=== PATIENT | female | born 1965 | race Caucasian/White ===

== ENCOUNTER 2020-08-25 15:35 | Outpatient (REF) | payer MEDICAID, SELFPAY ==
--- NOTE | ~2020-08-25 | MM_ITS ---
EXAMINATION: MM SCREENING DIGITAL BREAST TOMOSYNTHESIS, BILATERAL CLINICAL INFORMATION: Screening. Asymptomatic. Right breast biopsy 2013 (fibroadenomatoid change and adenosis). The lifetime risk of breast cancer based on the Tyrer-Cuzick Model is 15%. COMPARISON: Mammography: 11/04/2018, 12/20/2016, 09/08/2015 TECHNIQUE: Digital breast tomosynthesis is performed in both the craniocaudal and mediolateral oblique views along with computer-aided detection (CAD). Synthesized 2D images are generated from the tomosynthesis. FINDINGS: The breasts are heterogeneously dense, which may obscure small masses (ACR BI-RADS breast composition Category c). Parenchymal pattern is similar to prior exams. No significant changes. There are no significant masses, abnormal calcifications, or other abnormalities. There is biopsy clip marker again noted on the right mid upper outer quadrant. There is a stable macrolobulated mass under 2 cm mid medial left breast. This has interval benign solitary coarse internal calcification suggesting degenerating fibroadenoma. MM/MM tomosynthesis screening BI IMPRESSION: No significant changes from prior exams. ASSESSMENT: BI-RADS 2: Benign RECOMMENDATION: Routine annual mammography screening. This patient's information was entered into a reminder system with a target due date for their next mammogram.
== END 2020-08-25 15:36 | disposition home or self-care (01) ==
LOC: HO.MAMMO 15:35
PROVIDERS: PCP Pediatrics; Visit Provider Pediatrics
DX: Z12.31 Encounter for screening mammogram for malignant neoplasm of breast (principal)
CPT/HCPCS: 77063; 77067

== ENCOUNTER 2020-12-15 14:40 | Outpatient (REF) | payer MEDICAID, SELFPAY ==
--- NOTE | ~2020-12-15 | XR_ITS ---
EXAMINATION: XR HAND, RIGHT XR HAND, LEFT CLINICAL INFORMATION: Pain everywhere COMPARISON: Left wrist radiographs 08/19/2018 TECHNIQUE: 3 views of each hand FINDINGS: Right hand: No fracture or dislocation. Alignment is anatomic. Joint spaces are maintained with small osteophytes throughout the interphalangeal joints noted. The soft tissues appear unremarkable. Left hand: No fracture or dislocation. Alignment is anatomic. Joint spaces are maintained. Small osteophytes throughout the interphalangeal joints. The soft tissues appear unremarkable. XR/XR hand LT 2V IMPRESSION: Mild degenerative changes of both hands.
--- NOTE | ~2020-12-15 | XR_ITS ---
EXAMINATION: XR HAND, RIGHT XR HAND, LEFT CLINICAL INFORMATION: Pain everywhere COMPARISON: Left wrist radiographs 08/19/2018 TECHNIQUE: 3 views of each hand FINDINGS: Right hand: No fracture or dislocation. Alignment is anatomic. Joint spaces are maintained with small osteophytes throughout the interphalangeal joints noted. The soft tissues appear unremarkable. Left hand: No fracture or dislocation. Alignment is anatomic. Joint spaces are maintained. Small osteophytes throughout the interphalangeal joints. The soft tissues appear unremarkable. XR/XR hand RT 2V IMPRESSION: Mild degenerative changes of both hands.
== END 2020-12-15 14:41 | disposition home or self-care (01) ==
LOC: HO.XRAY 14:40
PROVIDERS: PCP Pediatrics; Visit Provider Pediatrics
DX: M79.641 Pain in right hand (principal); M79.642 Pain in left hand
CPT/HCPCS: 73120

== ENCOUNTER 2021-11-04 19:10 | Emergency (ER) | payer MEDICAID, SELFPAY ==
--- NOTE | ~2021-11-04 | CT_ITS ---
EXAMINATION: NONCONTRAST HEAD CT NONCONTRAST CERVICAL SPINE CT INDICATION INFORMATION: Fall. Pain. COMPARISON: 08/20/2019 TECHNIQUE: Separate noncontrast CT examinations of the head and cervical spine were performed. Coronal and sagittal images were created for each examination at the technologist workstation. This CT examination was performed using dose optimization techniques as appropriate, variously including the following: *Automated exposure control *Adjustment of mA and/or kV according to patient size (this includes techniques or standardized protocols for targeted exams where dose is matched to indication/reason for exam; i.e. extremities or head) *Use of iterative reconstruction technique DLP: 846 mGy-cm FINDINGS: Head: There is no evidence of acute intracranial hemorrhage or territorial infarction. No abnormal mass effect or midline shift is seen. [place] to white matter differentiation is well preserved. No extra-axial fluid collections are identified. No hydrocephalus. No significant volume loss. There is no abnormal attenuation within the brain parenchyma. No acute osseous or soft tissue abnormality. The mastoid air cells and visualized portions of the paranasal sinuses are well aerated. Cervical spine: Straightening of the normal cervical lordosis. There is anatomic alignment of the vertebral bodies and posterior elements. The atlantoaxial and atlantooccipital articulations are intact. Vertebral body heights are maintained. There is multilevel intervertebral disc space narrowing with endplate osteophyte formation and facet arthropathy. No evidence of acute fracture. No prevertebral soft tissue swelling. Visualized portions of the lung apices are unremarkable. The thyroid gland is unremarkable. CT/CT cervical spine wo IV con IMPRESSION: 1. No acute intracranial finding. 2. No acute fracture or malalignment of the cervical spine. Mild degenerative change throughout.
[2021-11-04 20:50] VITALS: BP 126/75; PULSE 69; RESP 18; TEMP 36.6; O2SAT 99; BMI 25.7
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
[2021-11-05] MEDS: Acetaminophen 325 MG TABLET 650 MG PO (00:31)
[2021-11-05] MEDS: Ondansetron ODT 4 MG TAB.RAPDIS TRANSLINGU (00:31)
== END 2021-11-05 01:18 | disposition home or self-care (01) ==
PROVIDERS: Emergency Provider Emergency Medicine; PCP Pediatrics
DX: S06.0X0A Concussion without loss of consciousness, initial encounter (principal); V28.0XXA Motorcycle driver injured in noncollision transport accident in nontraffic accident, initial encounter; Y93.89 Activity, other specified; Y92.414 Local residential or business street as the place of occurrence of the external cause; Y99.9 Unspecified external cause status
CPT/HCPCS: 70450; 72125; 99283; 99284

== ENCOUNTER 2022-05-09 11:23 | Outpatient (REF) | payer MEDICAID, SELFPAY ==
--- NOTE | ~2022-05-09 | US_ITS ---
EXAMINATION: US ABDOMEN COMPLETE CLINICAL INFORMATION: Right upper quadrant pain. COMPARISON: CT abdomen and pelvis 04/21/2017. TECHNIQUE: Real-time imaging of the abdominal viscera. Today's examination is limited secondary to overlying bowel gas. FINDINGS: PANCREAS: Visualized portions of pancreas are normal in appearance. ABDOMINAL AORTA: The proximal, mid, and distal segments are normal in caliber. INFERIOR VENA CAVA: Visualized portions are normal. LIVER: The liver is normal in size. The liver contour is normal. Parenchymal echogenicity is normal. Simple appearing 2.2 cm cyst of the right hepatic lobe. There is no intrahepatic biliary duct dilatation seen. GALLBLADDER: Normal. The gallbladder is physiologically distended without evidence of stones, sludge, polyps, wall thickening or pericholecystic fluid. COMMON BILE DUCT: Normal in caliber measuring 0.4 cm in diameter. RIGHT KIDNEY: The kidney measures 10.1 cm in maximum dimension. Suspected parapelvic cysts. No gross hydronephrosis. No renal calculi. LEFT KIDNEY: The kidney measures 10.7 cm in maximum dimension. Suspected peripelvic cysts. No gross hydronephrosis. No renal calculi. SPLEEN: Normal. The spleen measures 9.2 cm in maximum dimension. FREE FLUID: None. US/US abdomen complete IMPRESSION: 1. Simple appearing 2.2 cm cyst of the right hepatic lobe. 2. Suspected parapelvic cysts of both kidneys. No gross hydronephrosis. Further evaluation can be obtained with CT urogram if clinically indicated.
== END 2022-05-09 11:24 | disposition home or self-care (01) ==
LOC: HO.HMGCX 11:23
PROVIDERS: PCP Pediatrics; Visit Provider Family Medicine
DX: R10.11 Right upper quadrant pain (principal)
CPT/HCPCS: 76700

== ENCOUNTER 2022-07-18 09:36 | Outpatient (REF) | payer MEDICAID, SELFPAY ==
--- NOTE | ~2022-07-18 | CT_ITS ---
EXAMINATION: CT ABDOMEN AND PELVIS WITHOUT AND WITH CONTRAST CLINICAL INFORMATION: Renal cyst COMPARISON: None available. TECHNIQUE: Noncontrast CT of the abdomen and pelvis is performed followed by split bolus contrast-enhanced images using 85 mL Omnipaque 350 contrast.? Postcontrast imaging is performed during the combined nephrogram and excretion phase. Sagittal and coronal reformatted images were obtained on the technologist's workstation for both the precontrast and postcontrast phases. This CT examination was performed using dose optimization techniques as appropriate, variously including the following: *Automated exposure control *Adjustment of mA and/or kV according to patient size (this includes techniques or standardized protocols for targeted exams where dose is matched to indication/reason for exam; i.e. extremities or head) *Use of iterative reconstruction technique DLP: 707 mGy-cm FINDINGS: LUNG BASES: The visualized lung bases are unremarkable. LIVER, GALLBLADDER, AND BILIARY TREE: The liver is normal in size, shape, and attenuation. There is a bilobed 1.4 cm left hepatic cyst no additional lesions seen. There is no intrahepatic ductal dilatation. The gallbladder is unremarkable with no evidence of radiopaque gallstones, gallbladder wall thickening, or obvious pericholecystic inflammatory changes. PANCREAS: Unremarkable. SPLEEN: Unremarkable. ADRENAL GLANDS: Unremarkable. KIDNEYS AND URETERS: On nonenhanced CT there is no radiopaque renal calculi. There is bilateral kidney fullness. Postcontrast there is bilateral peripelvic cysts with and bilateral opacified kidney pelvis. Unremarkable. There is symmetrical bilateral kidney nephrograms. No cortical cysts, enhancing mass or perinephric stranding. The left kidney measures 10.7 cm in length and right kidney measures 10.5 cm. Both ureters are well-opacified and appear unremarkable.. BLADDER: Unremarkable. GASTROINTESTINAL TRACT: There is scattered stool and gas seen throughout the colon without distention. The small bowel loops are normal caliber. Appendix is normal caliber. ABDOMINAL WALL: There is a small umbilical hernia containing fat. LYMPH NODES: Normal. VASCULAR: The abdominal aorta and bifurcation into common iliac arteries are normal. PELVIC VISCERA: The uterus is anteverted and appears unremarkable. There is no free fluid. No adnexal mass seen. OSSEUS STRUCTURES: No aggressive lytic or sclerotic process seen. CT/CT urogram IMPRESSION: No radiopaque renal calculi or hydronephrosis. Bilateral parapelvic renal cysts. Mild constipation.
[2022-07-18] MEDS: iohexoL 350 MG/ML 100 ML INFUS..BTL IV (11:15)
[2022-07-18 14:10] LABS: Creatinine POC 0.5 mg/dL (0.5-1.4); GFR POC 60
== END 2022-07-18 09:37 | disposition home or self-care (01) ==
LOC: HO.CT 09:36
PROVIDERS: PCP Pediatrics; Visit Provider Pediatrics
DX: N28.1 Cyst of kidney, acquired (principal); K76.89 Other specified diseases of liver
CPT/HCPCS: 74178; 82565; Q9967

== ENCOUNTER 2022-09-04 13:46 | Outpatient (AMB) | payer MEDICAID, SELFPAY ==
--- NOTE | 2022-09-04 14:05 | A.OFFVIS_ITS ---
Intake Intake Visit Reasons: BI renal cyst Intake Note: Patient patient presents for bilateral renal cyst Urology Medication: none Blood Thinner: none Allergies peanut [PEANUT] Allergy (Severe, Verified 09/04/22 15:04) THROAT CLOSES tree nut [TREE NUT] Allergy (Severe, Verified 09/04/22 15:04) THROAT CLOSES FRUIT, SKINS Allergy (Severe, Uncoded 09/04/22 15:04) THROAT CLOSES Medication List - Last Reconciled 09/04/22 by MATI Curtis cholecalciferol (vitamin D3) 50 mcg PO QAM dicyclomine 10 mg PO TID metformin ER 750 mg PO DAILY morphine ER 30 mg PO BID PRN pantoprazole 40 mg PO DAILY HPI HPI Comments History of Present Illness Details Neeru is a very pleasant 57 year old patient of Dr. Leon. She has a PMH of chronic pain, Diabetes Type II, GERD, and asthma. She presents to the office today as a new patient for bilateral parapelvic cysts of both kidneys. Patient reports she had been experiencing right sided upper abdominal pain under her breast area at which time an ultrasound was ordered for further assessment and evaluation. Abdominal ultrasound showing bilateral suspected parapelvic cysts with no gross hydronephrosis and or renal calculi. Ultrasound recommending CT urogram for further evaluation. In review of patients chart it appears CT urogram was performed. These results were reviewed with the patient today. There is bilateral kidney fullness. Post-contrast there is bilateral peripelvic cyst with and bilateral opacified kidney pelvis. Unremarkable. There is symmetrical bilateral kidney nephrograms. No cortical cysts, enhancing mass or perinephric stranding. Both ureters are well-opacified and appear unremarkable. When asked patient does report urinary frequency however patient relates urinary frequency to her uncontrolled diabetes. She states whenever her sugars are elevated she notes urinary frequency. She otherwise denies any urinary issues or concerns at this time. When asked she denies urinary urgency, incontinence, nocturia, hematuria, dysuria, foul smelling urine, changes to urinary stream, flank pain, fever, and or chills. She is happy with her current voiding parameters. In office urinalysis results reviewed with the patient today. She reports she is following up with her PCP regarding her constipation and her gullbladder fullness. She otherwise denies any issues or concerns. [facility] Medical History (Updated 09/04/22 @ 15:32 [facility] Asthma Chronic pain Diabetes mellitus Social History Patient Tobacco Use Status: Never used Tobacco Review of Systems Const Reports as per HPI Eyes Reports no additional complaints ENT Reports no additional complaints Card Reports no additional complaints Resp Reports as per HPI GI Reports as per HPI Reports as per HPI Neuro Reports no additional complaints Psych Reports no additional complaints Endo Reports as per HPI Physical Exam Const General: cooperative, healthy appearing, comfortable, no acute distress, well developed, alert and awake Orientation/consciousness: patient oriented x3 Limitations: no limitations HEENT Head: Yes normal to inspection, Yes normocephalic and Yes atraumatic Ears: hearing grossly normal bilaterally Eyes General: appearance normal, both eyes and all related structures Neck Neck: Yes normal visual inspection and Yes trachea midline Chest Chest palpation & inspection: normal inspection of the chest Resp Effort & Inspection: normal respiratory effort and able to speak in complete sentences Cardio Rate: regular rate GI Inspection: Yes normal to inspection General: Yes no CVA tenderness Back/Spine/Pelvis Back: no CVA tenderness Skin General skin exam: no rashes or lesions noted Neuro General: patient oriented x3 Extrem General: Yes normal to inspection Psych Appearance: grossly normal and well kempt Mental Status: mental status grossly normal Speech and movement: Normal speech and movement present and Clear speech present Affect: normal affect Attitude: cooperative Thought process: Normal thought process present Thought content: Normal thought content present Insight: Fair insight present (Psych) Judgement: Fair judgement present (Psych) Results AMB Urinalysis, Automated UA Leukoctes 70 Luisa/uL Last Edit by Christin Villalba on 09/04/22 14:51 UA Nitrite Negative Last Edit by Christin Villalba on 09/04/22 14:51 UA Urobilinogen 0.2 mg/dL Last Edit by Christin Villalba on 09/04/22 14:51 UA Protein 0 mg/dL Last Edit by Christin Villalba on 09/04/22 14:51 UA pH 5.5 Last Edit by Christin Villalba on 09/04/22 14:51 UA Blood 0 Francesco/uL Last Edit by Christin Villalba on 09/04/22 14:51 UA Specific [place] 1.025 Last Edit by Christin Villalba on 09/04/22 14:51 UA Ketone Last Edit by Christin Villalba on 09/04/22 14:51 UA Bilirubin 1 mg/dL Last Edit by Christin Villalba on 09/04/22 14:51 UA Glucose 0 mg/dL Last Edit by Christin Villalba on 09/04/22 14:51 Results Reviewed Results Reviewed: Laboratory Last Values Urine pH (Auto) 5.5 09/04/22 14:47 Specific [place] (Auto) 1.025 09/04/22 14:47 Urine Protein (Auto) 0 mg/dL 09/04/22 14:47 Glucose (UA)(Auto) 0 mg/dL 09/04/22 14:47 Urine Blood (Auto) 0 Francesco/uL 09/04/22 14:47 Urine Nitrite (Auto) Negative 09/04/22 14:47 Urine Bilirubin (Auto) 1 mg/dL 09/04/22 14:47 Urine Urobilinogen (Auto) 0.2 mg/dL 09/04/22 14:47 Leukocyte Esterase (Auto) 70 Luisa/uL 09/04/22 14:47 Date of Service: 05/09/22 EXAMINATION: US ABDOMEN COMPLETE FINDINGS: PANCREAS: Visualized portions of pancreas are normal in appearance. ABDOMINAL AORTA: The proximal, mid, and distal segments are normal in caliber. INFERIOR VENA CAVA: Visualized portions are normal. LIVER: The liver is normal in size. The liver contour is normal. Parenchymal echogenicity is normal. Simple appearing 2.2 cm cyst of the right hepatic lobe. There is no intrahepatic biliary duct dilatation seen. GALLBLADDER: Normal. The gallbladder is physiologically distended without evidence of stones, sludge, polyps, wall thickening or pericholecystic fluid. COMMON BILE DUCT: Normal in caliber measuring 0.4 cm in diameter. RIGHT KIDNEY: The kidney measures 10.1 cm in maximum dimension. Suspected parapelvic cysts. No gross hydronephrosis. No renal calculi. LEFT KIDNEY: The kidney measures 10.7 cm in maximum dimension. Suspected peripelvic cysts. No gross hydronephrosis. No renal calculi. SPLEEN: Normal. The spleen measures 9.2 cm in maximum dimension. FREE FLUID: None. IMPRESSION: 1.? Simple appearing 2.2 cm cyst of the right hepatic lobe. 2.? Suspected parapelvic cysts of both kidneys. No gross hydronephrosis. Further evaluation can be obtained with CT urogram if clinically indicated. Date of Service: 07/18/22 EXAMINATION: CT ABDOMEN AND PELVIS WITHOUT AND WITH CONTRAST?? ? FINDINGS: LUNG BASES: The visualized lung bases are unremarkable.? LIVER, GALLBLADDER, AND BILIARY TREE: The liver is normal in size, shape, and attenuation. There is a bilobed 1.4 cm left hepatic cyst no additional lesions seen. There is no intrahepatic ductal dilatation. The gallbladder is unremarkable with no evidence of radiopaque gallstones, gallbladder wall thickening, or obvious pericholecystic inflammatory changes.? PANCREAS: Unremarkable.? SPLEEN: Unremarkable.? ADRENAL GLANDS: Unremarkable.? KIDNEYS AND URETERS: On nonenhanced CT there is no radiopaque renal calculi. There is bilateral kidney fullness. Postcontrast there is bilateral peripelvic cysts with and bilateral opacified kidney pelvis. Unremarkable. There is symmetrical bilateral kidney nephrograms. No cortical cysts, enhancing mass or perinephric stranding. The left kidney measures 10.7 cm in length and right kidney measures 10.5 cm. Both ureters are well-opacified and appear unremarkable..? BLADDER: Unremarkable.? GASTROINTESTINAL TRACT: There is scattered stool and gas seen throughout the colon without distention. The small bowel loops are normal caliber. Appendix is normal caliber.? ABDOMINAL WALL: There is a small umbilical hernia containing fat.? LYMPH NODES: Normal. VASCULAR: The abdominal aorta and bifurcation into common iliac arteries are normal. PELVIC VISCERA: The uterus is anteverted and appears unremarkable. There is no free fluid. No adnexal mass seen.? OSSEUS STRUCTURES: No aggressive lytic or sclerotic process seen.? IMPRESSION: No radiopaque renal calculi or hydronephrosis. Bilateral parapelvic renal cysts. ? Mild constipation. ? Assessment & Plan Assessment & Plan (1) Parapelvic renal cyst: Code(s): N28.1 - Cyst of kidney, acquired Plan In office urinalysis results reviewed with the patient; as noted above Abdominal U/S and CT Urogram results reviewed with the patient today. Discussed at length potential causes for parapelvic renal cysts. Patient denies any bothersome urinary issues or concerns. Renal ultrasound in 6 months Follow up in 6 months with imaging to be completed prior; or sooner with any issues, concerns, or questions. Orders: Orders US renal BI 6 Months N28.1 - Cyst of kidney, acquired AMB Urinalysis Automated 09/04/22 Z13.9 - Encounter for screening, unspecified Patient Instructions: The patient had an opportunity to ask questions regarding the treatment plan. All questions were answered. Physical exam, labs, and imaging were discussed and reviewed in detail. As well as risks, benefits, and discussion of treatment choices. No major barriers to understanding were identified. The patient expressed understanding and agreement with the above treatment plan. The patient was made aware they should contact our office by phone for worsening of their current condition, the appearance of new symptoms, or with any questions or concerns. Compliance is encouraged with any medications and follow up testing that is ordered. It is a privilege to be allowed the opportunity to participate in? your urological care.? Again, if you have any questions or concerns If you have any questions or concerns please do not hesitate to contact me. The office is [phone]. This note is constructed using voice recognition software. While every effort has been made to ensure accuracy straw hat brim raiser operator errors may have been included. Yours sincerely, MATI Curtis Coding Level of Care Code New Pt Level 3 (39216) Diagnoses Parapelvic renal cyst N28.1
== END 2022-09-04 14:58 | disposition home or self-care (01) ==
PROVIDERS: PCP Pediatrics; Visit Provider Nurse Practitioner Family
DX: N28.1 Cyst of kidney, acquired (principal)
CPT/HCPCS: 99203

== ENCOUNTER → 2022-09-04 13:46 | Outpatient (BNVA) | payer MEDICAID, SELFPAY | PROVIDERS: PCP Pediatrics; Visit Provider Nurse Practitioner Family | DX: N28.1 Cyst of kidney, acquired (principal) | CPT/HCPCS: 99203 ==

== ENCOUNTER 2023-02-20 09:53 | Outpatient (REF) | payer MEDICAID, SELFPAY ==
--- NOTE | ~2023-02-20 | US_ITS ---
EXAMINATION: US RETROPERITONEAL LIMITED (RENAL ONLY) CLINICAL INFORMATION: Cyst of kidney, acquired. COMPARISON: CT urogram 07/18/2022. Ultrasound abdomen complete 05/09/2022. TECHNIQUE: Real-time imaging of the kidneys. Limited visualization due to bowel gas. FINDINGS: RIGHT KIDNEY: 10.6 x 4.4 x 4.3 cm (SAG x AP x TRV). Multiple peripelvic anechoic spaces may represent peripelvic cysts versus pelvocaliectasis. No renal calculi. Renal cortical thickness is normal. Limited visualization. LEFT KIDNEY: 11.3 x 5.8 x 5.9 cm (SAG x AP x TRV). Multiple peripelvic anechoic spaces, largest mid pole 1.5 x 3.1 x 1.6 cm, may represent peripelvic cysts versus pelvocaliectasis. No renal calculi. Renal cortical thickness is normal. Limited visualization. US/US renal BI IMPRESSION: Multiple bilateral renal peripelvic anechoic spaces may represent peripelvic cysts versus pelvocaliectasis. CT scan of July 18, 2022 demonstrated bilateral parapelvic cysts.
== END 2023-02-20 09:54 | disposition home or self-care (01) ==
LOC: HO.HMGCX 09:53
PROVIDERS: PCP Pediatrics; Visit Provider Nurse Practitioner Family
DX: N28.1 Cyst of kidney, acquired (principal)
CPT/HCPCS: 76775

== ENCOUNTER 2023-03-12 14:44 | Outpatient (AMB) | payer MEDICAID, SELFPAY ==
--- NOTE | 2023-03-12 14:57 | MHC.OFFVIS ---
Intake Intake Visit Reasons: 6m/US Intake Note: Patient patient presents for bilateral renal cyst and ultrasound results (imaging 02/20/23) Urology Medication: none Blood Thinner: none Millwright Instructor Required: No Accompanied by: Self / Same As Patient Allergies peanut [PEANUT] Allergy (Severe, Verified 03/12/23 15:09) THROAT CLOSES tree nut [TREE NUT] Allergy (Severe, Verified 03/12/23 15:09) THROAT CLOSES FRUIT, SKINS Allergy (Severe, Uncoded 03/12/23 15:09) THROAT CLOSES Medication List - Last Reconciled 03/12/23 by MATI Curtis cholecalciferol (vitamin D3) 50 mcg PO QAM dicyclomine 10 mg PO TID metformin ER 750 mg PO DAILY morphine ER 30 mg PO BID PRN pantoprazole 40 mg PO DAILY HPI HPI Comments History of Present Illness Details Neeru is a very pleasant 57 year old patient of Dr. Leon. She has a PMH of chronic pain, Diabetes Type II, GERD, and asthma. She presents to the office today for follow-up of her bilateral parapelvic cysts of both kidneys. In discussion with the patient today she reports to be doing and feeling well. She reports having had lower GI symptoms approximately a week ago when starting antibiotic therapy for an infected tooth however has since been feeling better. Recent renal imaging results reviewed with the patient today. Bilateral kidneys with multiple bilateral renal parapelvic and anechoic spaces may present peripelvic cysts. CT scan 07/11--demonstrates bilateral parapelvic cysts. When asked she currently denies any bothersome urinary issues or concerns. In office urinalysis results reviewed with the patient today. She denies denies urinary urgency, urinary frequency, incontinence, nocturia, hematuria, dysuria, foul smelling urine, changes to urinary stream, flank pain, fever, and or chills. She is happy with her current voiding parameters. [facility] Medical History Diabetes mellitus Chronic pain Asthma Social History Patient Tobacco Use Status: Never used Tobacco Review of Systems Const Reports as per HPI Eyes Reports no additional complaints ENT Reports no additional complaints Card Reports no additional complaints Resp Reports as per HPI GI Reports as per HPI Reports as per HPI Neuro Reports no additional complaints Psych Reports no additional complaints Endo Reports as per HPI Physical Exam Const General: cooperative, healthy appearing, comfortable, no acute distress, well developed, alert and awake Orientation/consciousness: patient oriented x3 Limitations: no limitations HEENT Head: Yes normal to inspection, Yes normocephalic and Yes atraumatic Ears: hearing grossly normal bilaterally Eyes General: appearance normal, both eyes and all related structures Neck Neck: Yes normal visual inspection and Yes trachea midline Chest Chest palpation & inspection: normal inspection of the chest Resp Effort & Inspection: normal respiratory effort and able to speak in complete sentences Cardio Rate: regular rate GI Inspection: Yes normal to inspection General: Yes no CVA tenderness Back/Spine/Pelvis Back: no CVA tenderness Skin General skin exam: no rashes or lesions noted Neuro General: patient oriented x3 Extrem General: Yes normal to inspection Psych Appearance: grossly normal and well kempt Mental Status: mental status grossly normal Speech and movement: Normal speech and movement present and Clear speech present Affect: normal affect Attitude: cooperative Thought process: Normal thought process present Thought content: Normal thought content present Insight: Fair insight present (Psych) Judgement: Fair judgement present (Psych) Results AMB Urinalysis, Automated UA Leukoctes 0 Luisa/uL Last Edit by Blackwood Seven on 03/12/23 15:12 UA Nitrite Negative Last Edit by Blackwood Seven on 03/12/23 15:12 UA Urobilinogen 0.2 mg/dL Last Edit by Blackwood Seven on 03/12/23 15:12 UA Protein 0 mg/dL Last Edit by Blackwood Seven on 03/12/23 15:12 UA pH 5.5 Last Edit by Blackwood Seven on 03/12/23 15:12 UA Blood 0 Francesco/uL Last Edit by Blackwood Seven on 03/12/23 15:12 UA Specific Lud[place] 1.025 Last Edit by Blackwood Seven on 03/12/23 15:12 UA Ketone Negative Last Edit by Blackwood Seven on 03/12/23 15:12 UA Bilirubin 0 mg/dL Last Edit by Blackwood Seven on 03/12/23 15:12 UA Glucose 0 mg/dL Last Edit by Blackwood Seven on 03/12/23 15:12 Results Reviewed Results Reviewed: Laboratory Last Values Urine pH (Auto) 5.5 03/12/23 15:02 Specific Lud[place] (Auto) 1.025 03/12/23 15:02 Urine Protein (Auto) 0 mg/dL 03/12/23 15:02 Glucose (UA)(Auto) 0 mg/dL 03/12/23 15:02 Urine Ketones (Auto) Negative 03/12/23 15:02 Urine Blood (Auto) 0 Francesco/uL 03/12/23 15:02 Urine Nitrite (Auto) Negative 03/12/23 15:02 Urine Bilirubin (Auto) 0 mg/dL 03/12/23 15:02 Urine Urobilinogen (Auto) 0.2 mg/dL 03/12/23 15:02 Leukocyte Esterase (Auto) 0 Luisa/uL 03/12/23 15:02 Date of Service: 02/20/23 EXAMINATION: US RETROPERITONEAL LIMITED (RENAL ONLY) FINDINGS: RIGHT KIDNEY: 10.6 x 4.4 x 4.3 cm (SAG x AP x TRV). Multiple peripelvic anechoic spaces may represent peripelvic cysts versus pelvocaliectasis. No renal calculi. Renal cortical thickness is normal. Limited visualization. LEFT KIDNEY: 11.3 x 5.8 x 5.9 cm (SAG x AP x TRV). Multiple peripelvic anechoic spaces, largest mid pole 1.5 x 3.1 x 1.6 cm, may represent peripelvic cysts versus pelvocaliectasis. No renal calculi. Renal cortical thickness is normal. Limited visualization. IMPRESSION: Multiple bilateral renal peripelvic anechoic spaces may represent peripelvic cysts versus pelvocaliectasis. CT scan of July 18, 2022 demonstrated bilateral parapelvic cysts. Assessment & Plan Assessment & Plan (1) Parapelvic renal cyst: Code(s): N28.1 - Cyst of kidney, acquired Plan In office urinalysis results reviewed with the patient today; as noted above. Recent renal imaging results reviewed with the patient today; as noted above. Will continue with surveillance monitoring. Patient currently denies any bothersome urinary issues or concerns. She reports be happy with current voiding parameters. Will obtain renal ultrasound in 1 year. Follow-up in 1 year with imaging to be completed prior; or sooner with any issues, concerns, and or questions. Orders: Orders US renal BI 364 Days N28.1 - Cyst of kidney, acquired AMB Urinalysis Automated Today Z13.9 - Encounter for screening, unspecified Patient Instructions: The patient had an opportunity to ask questions regarding the treatment plan. All questions were answered. Physical exam, labs, and imaging were discussed and reviewed in detail. As well as risks, benefits, and discussion of treatment choices. No major barriers to understanding were identified. The patient expressed understanding and agreement with the above treatment plan. The patient was made aware they should contact our office by phone for worsening of their current condition, the appearance of new symptoms, or with any questions or concerns. Compliance is encouraged with any medications and follow up testing that is ordered. It is a privilege to be allowed the opportunity to participate in? your urological care.? Again, if you have any questions or concerns If you have any questions or concerns please do not hesitate to contact me. The office is [phone]. This note is constructed using voice recognition software. While every effort has been made to ensure accuracy carpenter general errors may have been included. Yours sincerely, MATI Curtis Coding Level of Care Code Est Pt Level 3 (53241) Diagnoses Parapelvic renal cyst N28.1
== END 2023-03-12 15:20 | disposition home or self-care (01) ==
PROVIDERS: PCP Pediatrics; Visit Provider Nurse Practitioner Family
DX: N28.1 Cyst of kidney, acquired (principal); Z13.9 Encounter for screening, unspecified
CPT/HCPCS: 99213

== ENCOUNTER → 2023-03-12 14:44 | Outpatient (BNVA) | payer MEDICAID, SELFPAY | PROVIDERS: PCP Pediatrics; Visit Provider Nurse Practitioner Family | DX: N28.1 Cyst of kidney, acquired (principal) | CPT/HCPCS: 81003; 99212 ==

== ENCOUNTER 2023-04-25 10:29 | Outpatient (REF) | payer MEDICAID, SELFPAY ==
[2023-04-25 14:32] LABS: MANUAL DIFF FLAG NO
[2023-04-25 14:45] LABS: Basophils Percent Auto 0.6 % (0-2); Eosinophils Absolute Auto 0.1 X10*3/uL (0.0-0.4); Eosinophils Percent Auto 2.1 % (0-4); Hematocrit 47.5 % (37.0-47.0); Hemoglobin 16.3 g/dl (12.0-16.0); Lymphocytes Absolute Auto 1.8 X10*3/uL (1.2-4.9); Lymphocytes Percent Auto 37.4 % (20-40); Mean Corpuscular HGB Conc 34.3 g/dl (31.0-35.0); Mean Corpuscular Hemoglobin 31.1 pg (27.0-33.0); Mean Corpuscular Volume 90.6 fL (80.0-98.0); Mean Platelet Volume 11.6 fL (9.4-12.3); Monocytes Absolute Auto 0.5 X10*3/uL (0.1-1.2); Monocytes Percent Auto 9.4 % (2-11); Neutrophils Absolute Auto 2.4 x10*3/uL (2.0-8.3); Neutrophils Percent Auto 50.5 % (45-73); Platelet Count 227 X10*3/uL (160-400); Red Blood Count 5.24 X10*6/uL (4.20-5.50); Red Cell Distribution Width 11.9 % (11.0-16.0); White Blood Count 4.8 X10*3/uL (4.8-10.8)
[2023-04-25 15:48] LABS: Alanine Aminotransferase 27 U/L (0-31); Albumin Level 4.4 g/dL (3.5-5.0); Alkaline Phosphatase 99 U/L (39-117); Anion Gap 15 (12-20); Aspartate Amino Transferase 19 U/L (5-31); Bilirubin Total 0.7 mg/dL (0.0-1.0); Blood Urea Nitrogen 14 mg/dL (9-16); Calcium 9.8 mg/dL (8.4-10.2); Carbon Dioxide 26 mmol/L (22-29); Chloride 105 mmol/L (96-108); Cholesterol 216 mg/dL (<200); Estimated Glomerular Filt Rate > 60; Glucose Random 108 mg/dL (60-115); HDL Cholesterol 56 mg/dL (>40); LDL Cholesterol Calculated 138 mg/dL (<100); Potassium 3.8 mmol/L (3.3-5.1); Sodium 142 mmol/L (135-145); Total Protein 7.2 g/dL (6.5-8.0); Triglycerides 111 mg/dL (<150)
[2023-04-25 15:52] LABS: TSH reflex Free T4 1.44 uIU/mL (0.32-4.0); Vitamin D 25-OH Total 33.7 ng/mL (>30)
== END 2023-04-25 10:30 | disposition home or self-care (01) ==
LOC: HO.CHCLDS 10:29
PROVIDERS: Visit Provider Pediatrics
DX: G89.4 Chronic pain syndrome (principal); E11.9 Type 2 diabetes mellitus without complications; G50.0 Trigeminal neuralgia; E55.9 Vitamin D deficiency, unspecified
CPT/HCPCS: 36415; 80053; 80061; 82306; 82550; 84443; 85025

== ENCOUNTER 2023-07-09 14:32 | Outpatient (REF) | payer MEDICAID, SELFPAY ==
--- NOTE | ~2023-07-09 | MM_ITS ---
EXAMINATION: MM SCREENING DIGITAL BREAST TOMOSYNTHESIS, BILATERAL CLINICAL INFORMATION: Screening. Asymptomatic. COMPARISON: Mammography: This study is compared with prior exams dating back to 2017. TECHNIQUE: Digital breast tomosynthesis is performed in both the craniocaudal and mediolateral oblique views along with computer-aided detection (CAD). Synthesized 2D images are generated from the tomosynthesis. FINDINGS: The breasts are heterogeneously dense, which may obscure small masses (ACR BI-RADS breast composition Category c). There are no significant masses, abnormal calcifications, or other abnormalities. There is a tissue marker in the superior aspect of the right breast from prior benign percutaneous biopsy. There are few, benign, coarse calcifications in the left breast contains within a well-circumscribed benign mass. This is fulfillment representative of an involuting fibroadenoma. MM/MM tomosynthesis screening BI IMPRESSION: No mammographic evidence of malignancy. ASSESSMENT: BI-RADS BI-RADS 2 - Benign Findings RECOMMENDATION: Routine annual mammography screening. 1 year F/U This examination should not preclude the clinical evaluation of a suspicious palpable abnormality. This patient's information was entered into a reminder system with a target due date for their next mammogram.
== END 2023-07-09 14:33 | disposition home or self-care (01) ==
LOC: HO.MAMMO 14:32
PROVIDERS: PCP Pediatrics; Visit Provider Pediatrics
DX: Z12.31 Encounter for screening mammogram for malignant neoplasm of breast (principal)
CPT/HCPCS: 77063; 77067

== ENCOUNTER → 2023-07-09 14:45 | Outpatient (BNV) | payer MEDICAID, SELFPAY | PROVIDERS: PCP Pediatrics; Visit Provider Radiology Diagnostic Radiology | DX: Z12.31 Encounter for screening mammogram for malignant neoplasm of breast (principal) | CPT/HCPCS: 77063; 77067 ==

== ENCOUNTER 2023-08-29 08:59 | Outpatient (REF) | payer MEDICAID, SELFPAY ==
[2023-08-29 14:57] LABS: TSH reflex Free T4 3.29 uIU/mL (0.32-4.0)
[2023-08-29 15:09] LABS: Folate 9.2 ng/mL (> or = 4.0); Vitamin B12 1050 pg/mL (200-900)
[2023-08-30 17:59] LABS: Lyme Abs Screen <0.90 index
== END 2023-08-29 09:00 | disposition home or self-care (01) ==
LOC: HO.CHCLDS 08:59
PROVIDERS: Visit Provider Pediatrics
DX: R53.82 Chronic fatigue, unspecified (principal)
CPT/HCPCS: 36415; 82607; 82746; 84443; 86617; 86618

== ENCOUNTER 2024-01-30 08:55 | Outpatient (REF) | payer MEDICAID, SELFPAY ==
[2024-01-30 14:11] LABS: MANUAL DIFF FLAG NO
[2024-01-30 14:16] LABS: Basophils Percent Auto 0.4 % (0-2); Eosinophils Absolute Auto 0.1 X10*3/uL (0.0-0.4); Eosinophils Percent Auto 1.9 % (0-4); Hematocrit 45.8 % (37.0-47.0); Hemoglobin 15.1 g/dl (12.0-16.0); Imm Gran Abs Auto 0.01 X10*3/uL (0.00-0.03); Imm Gran Pct Auto 0.2 % (0.0-0.4); Lymphocytes Absolute Auto 1.5 X10*3/uL (1.2-4.9); Lymphocytes Percent Auto 28.6 % (20-40); Mean Corpuscular Hemoglobin 30.6 pg (27.0-33.0); Mean Corpuscular Volume 92.9 fL (80.0-98.0); Mean Platelet Volume 11.4 fL (9.4-12.3); Monocytes Absolute Auto 0.5 X10*3/uL (0.1-1.2); Monocytes Percent Auto 9.4 % (2-11); Neutrophils Absolute Auto 3.1 x10*3/uL (2.0-8.3); Neutrophils Percent Auto 59.5 % (45-73); Platelet Count 223 X10*3/uL (160-400); Red Blood Count 4.93 X10*6/uL (4.20-5.50); Red Cell Distribution Width 11.9 % (11.0-16.0); White Blood Count 5.2 X10*3/uL (4.8-10.8)
[2024-01-30 14:45] LABS: Ferritin 236 ng/mL (10-250)
[2024-01-30 14:46] LABS: Monotest Negative (Negative)
== END 2024-01-30 08:56 | disposition home or self-care (01) ==
LOC: HO.CHCLDS 08:55
PROVIDERS: Visit Provider Pediatrics
DX: E11.9 Type 2 diabetes mellitus without complications (principal); Z23 Encounter for immunization; R53.82 Chronic fatigue, unspecified
CPT/HCPCS: 36415; 82728; 85025; 86308

== ENCOUNTER 2024-02-27 09:05 | Outpatient (REF) | payer MEDICAID, SELFPAY ==
--- NOTE | ~2024-02-27 | US_ITS ---
CLINICAL HISTORY: N28.1 - Cyst of kidney, acquired US Renal Comparison: US/OT/MD/SR - US RENAL BI - 02/20/23 10:03 EST Findings: Right kidney normal size and echotexture, 9.4 cm length. Left kidney normal size and echotexture, 11.0 cm length. There are multiple peripelvic cysts within the bilateral kidneys, measuring up to 2.3 cm in greatest dimension on the right and 2.3 cm in greatest dimension on the left. This is not significantly changed since the prior study. Normal color Doppler. IMPRESSION: 1. Multiple peripelvic cysts within the bilateral kidneys without change. This document has been electronically signed by: Angi Aggarwal MD on 02/28/2024 21:00:44
== END 2024-02-27 09:06 | disposition home or self-care (01) ==
LOC: HO.HMGCX 09:05
PROVIDERS: PCP Pediatrics; Visit Provider Nurse Practitioner Family
DX: N28.1 Cyst of kidney, acquired (principal)
CPT/HCPCS: 76775

== ENCOUNTER → 2024-02-27 09:07 | Outpatient (BNV) | payer MEDICAID, SELFPAY | PROVIDERS: PCP Pediatrics; Visit Provider Radiology Diagnostic Radiology | DX: N28.1 Cyst of kidney, acquired (principal) | CPT/HCPCS: 76775 ==

== ENCOUNTER 2024-03-18 | Outpatient (REF) | payer MEDICAID, SELFPAY ==
[2024-03-28 15:08] LABS: HPV Genotype 16 Negative (Negative); HPV Genotype 18 Negative (Negative); HPV High Risk Negative (Negative)
== END 2024-03-18 00:01 | disposition home or self-care (01) ==
LOC: HO.LNP
PROVIDERS: Visit Provider Pediatrics
DX: Z01.419 Encounter for gynecological examination (general) (routine) without abnormal findings (principal); N89.8 Other specified noninflammatory disorders of vagina
CPT/HCPCS: 87626; 88175

== ENCOUNTER 2024-03-18 13:33 | Outpatient (REF) | payer MEDICAID, SELFPAY ==
--- OUTSIDE RECORDS SUMMARY | 2024-03-18 14:33 | XMS_ITS | Encounter Summary ---
Author Organization [employer] Address [address] [place] [address] Care Team Providers Care Regional Vice President Surgical Sales Name Role Phone Radha Leon MD Primary Care Provider [phone] Reason for Visit * Reason Onset Date Comments Medication Question 05/04/2022 Encounter Details Date Type Department Care Team ([facility] Contact Info) Description 05/04/[address] [facility] MEDICINE [address] [place] [address] Radha Leon MD [address] [place], [place] [id number] Medication Question Social History Tobacco Use Types Packs/Day Years Used Date Smoking Tobacco: Never Passive Smoke Exposure: Never Smokeless Tobacco: Never Alcohol Use Standard Drinks/Week Comments Never 0 (1 standard drink = 0.6 oz pur e alcohol) Depression Answer Date Recorded Patient Health Questionnaire-9 Score 8 01/29/2024 Patient Health Questionnaire-9 Score 8 01/29/2024 Last PHQ-9: Questionnaire Data Not on file 1 03/31/2023 Housing Stability Answer Date Recorded What is your housing situation today? I have radha mendosa 01/29/[address] you li ve. Do you have problems with any of the following? None of the above 01/29/2024 Food Insecurity Answer Date Recorded Within the past 12 months, y ou worried that your food would run out before you got money to buy more: Never True 01/29/2024 Within the past 12 months,th e food you bought just didn't last and you didn't have enough money to get more: Never True 11/2023 Transportation Answer Date Recorded In the past 12 months, has l ack of transportation kept you from medical appts, meetings, work or from getting things needed for daily living? No 01/29/2024 Utilities Answer Date Recorded In the past 12 months, has t he electric, gas, oil or water company threatened to shut off services in your home? No 01/29/2024 Depression Answer Date Recorded Patient Health Questionnaire-2 Score 2 01/29/2024 Internet Access Answer Date Recorded Internet Access Q1 Yes 01/29/2024 Internet Access Q2 Not on file 01/29/2024 Comments Unknown Sex and Gender Information Value Date Recorded Sex Assigned at Female 12/19/2021 10:20 AM EDT Legal Sex Female 10:20 AM EDT Gender Identity Female 12/19/2021 10:20 AM EDT Sexual Orientation Straight 12/19/2021 10 :20 AM EDT COVID-19 Exposure Response Date Recorded In the last 10 days, have yo u been in contact with someone who was confirmed or suspected to have Coronavirus/COVID-19? No / Unsure 08/10/2022 2:40 PM EDT documented as of this encounter Miscellaneous Notes * Telephone Encounter - Re Patel RN - 05/04/2022 12:37 PM EDT Please review message below and advise. Thank you. * Telephone Encounter - Carrie Bailey - 05/04/2022 12:26 PM EDT Tc from [facility] pharmacy would like to inform PCP that they received script for PRO AIR inhaler, however has been discontinued , states alternative script can be for Proventil and ventolin. Please contact at [phone] documented in this encounter Plan of Treatment Upcoming Encounters Date Type Department Care Team ([facility] st Contact Info) Description 04/16/2024 9:00 AM EST Clinical Support [facility] [address] [place] [address] Mariangel Ha, KENDRA [address] [place] [address] documented as of this encounter Visit Diagnoses Not on filedocumented in this encounter Additional Health Concerns Assessment Noted Time PHQ-9 Depression Total Score: 14 023 12:32 PM EDT documented as of this encounter Care Teams Regional Vice President Surgical Sales Relationship Specialty Start Date End Date Radha Leon MD [address] [facility] [place] [address] PCP - General Family Medicine 02/19/18 documented as of this encounter
--- OUTSIDE RECORDS SUMMARY | 2024-03-18 14:33 | XMS_ITS | Clinical Summary ---
Author Organization [employer] Address [address] [place] [address] Care Team Providers Care Python Web Developer Name Role Phone Radha Leon MD Primary Care Provider [phone] Allergies Active Allergy Reactions Criticality Noted Date Comments Amoxicillin 03/29/2022 Clavulanic Acid Diarrhea High 01/02/2020 Medications naloxone (Narcan) 4 mg/0.1 mL nasal spray CALL 911. SPR CONTENTS OF ONE SPRAYER (0.1ML) INTO ONE NOSTRIL. REPEAT IN 2-3 MIN IF SYMPTOMS OF OPIOID EMERGENCY PERSIST, ALTERNATE NOSTRILS 09/28/19 22 Active FREESTYLE LITE test strip USE DIRECTED TO TEST BLOOD SUGAR THREE TIMES DAILY EVERY DAY 01/27/20 22 Active glucose blood (FREESTYLE LITE) test strip every 8 (eight) hours. 12/14/19 21 Active albuterol (2.5 MG/3ML) 0.083% nebulizer solution INHALE 3 MILLILITERS BY MOUTH EVERY 4-6 HOURS 07/31/19 22 Active pantoprazole (Protonix) 40 MG EC tabletIndicatio ns:RUQ abdominal pain Take 1 tablet (40 mg) by mouth before breakfast. Do not crush, chew, or split. 90 tablet 1 04/26/19 23 Active metFORMIN XR (Glucophage-XR) 750 MG 24 hr tablet TAKE 1 TABLET(750 MG) BY MOUTH WITH THE EVENING MEAL. DO NOT CRUSH, CHEW, OR SPLIT 30 tablet 11 03/12/19 24 Active albuterol 108 (90 Base) MCG/ACT inhalerIndicati ons:Mild intermittent asthma without complication INHALE 2 PUFFS BY MOUTH EVERY 4 HOURS 8.5 g 3 03/14/19 24 Active loratadine (Claritin) 10 MG tablet Take 1 tablet (10 mg) by mouth in the morning. 30 tablet 3 03/14/19 24 Active DULoxetine (Cymbalta) [address] capsule Take 20 mg by mouth 2 times daily. 03/26/19 24 Active FreeStyle lancetsIndicati ons:Diabetes mellitus without complication (CMS/HCC),Mild persistent asthma without complication USE DIRECTED TO CHECK BLOOD GLUCOSE THREE TIMES DAILY 100 each 11 04/30/19 24 Active budesonide (Pulmicort) 180 MCG/ACT inhaler Inhale 1 puff in the morning and at bedtime. Rinse mouth with water after use to reduce aftertaste and incidence of candidiasis. Do not swallow. 1 each 04/30/19 24 2024 Active cholecalciferol VITAMIN D (Vitamin D-3) 50 MCG (1999) capsuleIndicati ons:Vitamin D deficiency TAKE 1 CAPSULE BY MOUTH EVERY MORNING 90 capsule 3 07/26/19 24 Active Diclofenac Sodium 1 % gel APPLY TOPICALLY TO THE AFFECTED AREA DAILY 100 g 3 11/16/19 24 Active meloxicam (Mobic) 7.5 MG tabletIndicatio ns:Chronic pain syndrome TAKE 1 TABLET(7.5 MG) BY MOUTH IN THE MORNING AND AT BEDTIME NEEDED FOR MODERATE PAIN 60 tablet 3 12/31/19 24 Active morphine CR (MS Contin) 30 MG 12 hr tabletIndicatio ns:Chronic pain syndrome Take 1 tablet (30 mg) by mouth every 12 (twelve) hours. 60 tablet 02/19/20 24 Active acetaminophen (Tylenol Extra Strength) 500 MG tablet Take 1 tablet (500 mg) by mouth every 8 (eight) hours if needed for mild pain or moderate pain. 90 tablet 3 11/12/19 24 2024 morphine CR (MS Contin) 30 MG 12 hr tabletIndicatio ns:Chronic pain syndrome Take 1 tablet (30 mg) by mouth every 12 (twelve) hours. 60 tablet 01/11/20 24 2023 Discontinued(R eorder (will not trigger notification to Pharmacy)) Active Problems Problem Noted Date Diagnosed Date Simple hepatic cyst 06/07/2022 Bilateral renal cysts 06/07/2022 RUQ abdominal pain 04/25/2022 Assessment & Plan (04/25/2022 3:21 PM EST): Ddx gallbladder involvement vs peptic ulcer. Will send labs and imaging Will send trial of PPI If labs and imaging normal and symptoms not improved with PPI, consider further testing and referral to GI Future Appointments Date Time Provider Department Center 05/01/2022 3:00 PM [facility] SILVIO CRUZ NURSE [facility] 05/04/2022 11:30 AM Radha Leon MD [facility] Diabetes mellitus without complication 0 Mild asthma 09/19/2016 Chronic pain syndrome 05/17/2016 Lumbago with sciatica 12/28/2014 Trigeminal neuralgia 12/28/2014 Encounters Date Type Department Care Team Description 03/18/2024 9:45 AM EST Procedure Visit [facility] [address] [place] [address] Radha Leon MD Vaginal discharge (Primary Dx); Encounter for gynecological examination with Papanicolaou smear of cervix 03/18/2024 Travel 02/27/2024 Orders Only [facility] External Provider, [facility] 02/19/2024 Refill [facility] [address] [place] [address] Radha Leon MD Chronic pain syndrome 01/31/2024 Telephone [facility] [address] [place] [phone] Radha Leno MD 01/29/2024 11:15 AM EST Office Visit [facility] [address] [place] [address] Radha Leon MD Diabetes mellitus without complication ([facility]/HCC) (Primary Dx); Encounter for immunization; Chronic fatigue; Chronic pain syndrome; Trigeminal neuralgia 01/29/2024 Travel 01/23/2024 10:30 AM EST Telemedicine [facility] [address] [place] [address] Mariangel Ha RN Chronic pain syndrome 01/23/2024 Travel 01/10/2024 Refill [facility] [address] [place] [address] Radha Leon MD Chronic pain syndrome 12/28/2023 Refill [facility] [address], [place] [phone] Radha Leon MD Chronic pain syndrome 12/27/2023 Telephone [facility] AD[facility] [address], [place] [phone] Adele Salazar, DDS 12/27/2023 Telephone [facility] [address], [place] [phone] Radha Leon MD FYI 12/18/2023 Telephone [facility] [address], [place] [phone] Rdaha Leon MD Nurse Triage from Last 3 Months Immunizations Name Administration Dates Next Due Influenza Injectable Quadriv alant Preservative Free IIV4 MDCK 12/27/2022 Influenza injectable quadrivalent preservative f ree 11/10/2015,10/16/2014 Influenza, IIV3, injectable 10/14/2010, 5 Influenza, Split (incl. purified surface antigen ) 11/29/2011 Influenza, seasonal, injectable, preservative fr ee 01/29/2024 Pneumococcal Polysaccharide PPSV23 10/19/2017 Td (adult), unspecified 12/03/2001 Tdap 05/12/2018,09/23/2014 Zoster, Recombinant 08/03/2018,05/12/2018 Social History Tobacco Use Types Packs/Day Years [...] Orientation Straight 12/19/2021 10 :20 AM EDT Last Filed Vital Signs Vital Sign Reading Time Taken Comments Blood Pressure 137/82 03/18/2024 9:58 AM EST Pulse 100 03/18/2024 9:58 AM EST Temperature 37.1 ??C (98.7 ??F) 03/18/2024 9:58 AM ES T Respiratory Rate 16 03/18/2024 9:58 AM EST Oxygen Saturation 96% 03/18/2024 9:58 AM EST Inhaled Oxygen Concentration - - Weight 60.8 kg (134 lb) 03/18/2024 9:58 AM EST Height 160 cm (5' 3 ) 03/18/2024 9:58 AM EST Body Mass Index 23.74 03/18/2024 9:58 AM EST Plan of Treatment Upcoming Encounters Date Type Department Care Team (Late st Contact Info) Description 04/16/2024 9:00 AM EST Clinical Support [facility] [address] [place] [address] Mariangel Ha, KENDRA [address] [place] [address] Health Maintenance Due Date Last Done Comments CT Colonography 1965 Dental Prophylaxis 1965 FIT DNA/Cologuard 1965 FIT 1965 FOBT 1965 HIV Screening 1965 Sigmoidoscopy 1965 Diabetes: Foot Exam 07/10/1975 Hepatitis C Screening 07/10/1983 Hepatitis A Vaccines (1 of 2 - Risk 2-dose series) 1984 Hepatitis B Vaccines (1 of 3 - 19+ 3-dose series) 1984 Pap Smear 1986 Cervical Cancer Screening 07/10/1995 HPV/Cotest 07/10/1995 Pneumococcal Vaccine: Pediatrics (0 to 5 Years) and At-Risk Patients (6 to 64 Years) (2 of 2 - PCV) 10/19/2018 10/19/2017 Dental Oral Exam 11/11/2020 05/10/2020 Diabetes: Urine Protein Screening 12/08/2021 12/08/2020, 06/16/2020, 12/25/2019 Dental X-Ray: Full Mouth 05/12/2023 05/10/2020 COVID-19 Vaccine ( season) 2023 Dental X-Ray: Bitewings 04/17/2024 04/16/19 24, 02/21/2023, 05/10/2020 Lipid Panel 04/24/2024 04/25/2023, 07/21, 12/08/2020, Additional history exists Diabetes: Hemoglobin A1C 07/29/2024 024, 04/25/2023, 03/29/2022, Additional history exists Eye Exam 12/28/2024 12/28/2022 Alcohol/Substance Use Screening 01/28/2025 01/29/2024 Depression Screening 01/28/2025 01/29/2024, 01/29/20 24 SDOH Screening 01/28/2025 01/29/2024 Tobacco Screening 03/18/2025 03/18/2024 Mammogram 07/08/2025 2023, 06/20, 08/25/2020, Additional history exists Colonoscopy 03/14/2026 03/14/2016 Colorectal Cancer Screening 03/14/2026 DTaP/Tdap/Td Vaccines (3 - Td or Tdap) 05/12/2028 05/12/2018, 09/23/2014, 12/03/2001 RSV Patients and Patients Aged 60 years or older (1 - 1-dose 75+ series) 2040 Zoster Vaccines Completed 08/03/2018, 05/12/2018 Influenza Vaccine Completed 01/29/2024, , 01/04/2022, Additional history exists HIB Vaccines Aged Out No longer eligi ble based on patient's age to complete this topic HPV Vaccines Aged Out No longer eligi ble based on patient's age to complete this topic IPV Vaccines Aged Out No longer eligi ble based on patient's age to complete this topic Meningococcal Vaccine Aged Out No rakan bia eligible based on patient's age to complete this topic RSV under 20 months Aged Out No longe r eligible based on patient's age to complete this topic Rotavirus Vaccines Aged Out No longer eligible based on patient's age to complete this topic Procedures Procedure Name Priority Date/Time Associated Diagnosis Comments US RENAL BI Routine 02/28/2024 9:00 PM EST FERRITIN Routine 01/30/2024 8:57 AM EST Encounter for immunization Diabetes mellitus without complication (CMS/HCC) Chronic fatigue MONONUCLEOSIS TEST, QUALITATIVE Routine 01/30/2024 8:57 AM EST Encounter for immunization Diabetes mellitus without complication (CMS/HCC) Chronic fatigue CBC WITH AUTO DIFFERENTIAL Routine 01/30/2024 8:57 AM EST Encounter for immunization Diabetes mellitus without complication (CMS/HCC) Chronic fatigue POCT GLYCATED HEMOGLOBIN, TOTAL Routine 01/29/2024 12:04 PM EST Encounter for immunization Diabetes mellitus without complication (CMS/HCC) Chronic fatigue POCT GLUCOSE Routine 01/29/2024 12:03 PM EST Encounter for immunization Diabetes mellitus without complication (CMS/HCC) Chronic fatigue BI MAMMOGRAM SCREENING TOMOSYNTHESIS BILATERAL Routine 2023 3:00 PM EDT Breast cancer screening by mammogram LIPID PANEL, STANDARD Routine 04/25/2023 10:31 AM EST Chronic pain syndrome Diabetes mellitus without complication (CMS/HCC) Trigeminal neuralgia Vitamin D deficiency BITEWING - SINGLE RADIOGRAPHIC IMAGE Routine 04/16/2023 2:15 PM EST HM DIABETES EYE EXAM Routine 12/28/2022 ALBUMIN, RANDOM URINE W/CREATININE Routine 12/08/2020 8:41 AM EDT DIAGNOSTIC - DIAGNOSTIC IMAGING - INTRAORAL - COMPREHENSIVE SERIES OF RADIOGRAPHIC IMAGES Routine 05/10/2020 12:00 AM EDT COMPREHENSIVE ORAL EVALUATION - NEW OR ESTABLISHED PATIENT Routine 05/10/2020 12:00 AM EDT HM COLONOSCOPY Routine 03/14/2016 from Last 3 Months or Most Recently Relevant to Health Maintenance Results * US RENAL BI (02/28/2024 9:00 PM EST) Anatomical Region Laterality Modality Abdomen Ultrasound 02/28/2024 9:00 PM EST Narrative 02/28/2024 9:02 PM EST ? [facility] ?[address] ? [place] [address] ? Ultrasound Report ? Signed ? Patient: Ean Garciaher ?MR#: [id number] ?? [id number] ? : 1965 ?Acct:[id number] ? Age/Sex: 58 / F ?ADM Date: 02/27/24 ? Loc: HO.HMGCX ? Attending Dr: Monika THORNE ? Ordering Physician: Monika Guerin ?? Date of Service: 02/27/24 ?? Procedure(s): US renal BI ?? Accession Number(s): [id number] ? cc: Radha Leon MD; Monika Guerin ? CLINICAL HISTORY: N28.1 - Cyst of kidney, acquired ? US Renal ? Comparison: US/OT/AL/SR - US RENAL BI - 02/20/23 10:03 EST ? Findings: ?? Right kidney normal size and echotexture, 9.4 cm length. ?? Left kidney normal size and echotexture, 11.0 cm length. ? There are multiple peripelvic cysts within the bilateral kidneys, ?? measuring up to 2.3 cm in greatest dimension on the right and 2.3 cm in ?? greatest dimension on the left. This is not significantly changed since ?? the prior study. Normal color Doppler. ? IMPRESSION: ?? 1. Multiple peripelvic cysts within the bilateral kidneys without change. ? This document has been electronically signed by: Angi Aggarwal MD on ?? 02/28/2024 21:00:44 ? Dictated By: ?Angi Aggarwal MD ? Signed By: ?<Electronically signed by Angi Aggarwal MD in OV> ? 02/28/242100 ? DD/ 2100 ? TD/TT: 02/28/24 2100 ? Director Marketing: ? Procedure Note Donthangter, Image - 02/28/2024 [facility] [address] [place] [address] [place] [address] Ultrasound Report Signed Patient: Shani Garcia#: [id number] : 1965Acct:[id number] Age/Sex: 58 / FADM Date: 02/27/24 [facility] Attending Dr: Monika Guerin [facility] Ordering Physician: Monika Guerin Date of Service: 02/27/24 Procedure(s): US renal BI Accession Number(s): [id number] cc: Radha Leon MD; Monika Guerin [facility] CLINICAL HISTORY: N28.1 - Cyst of kidney, acquired US Renal Comparison: US/OT/AL/SR - US RENAL BI - 02/20/23 10:03 EST Findings: Right kidney normal size and echotexture, 9.4 cm length. Left kidney normal size and echotexture, 11.0 cm length. There are multiple peripelvic cysts within the bilateral kidneys, measuring up to 2.3 cm in greatest dimension on the right and 2.3 cm in greatest dimension on the left. This is not significantly changed since the prior study. Normal color Doppler. IMPRESSION: 1. Multiple peripelvic cysts within the bilateral kidneys without change. This document has been electronically signed by: Angi Aggarwal MD on 02/28/2024 21:00:44 Dictated By: Angi Aggarwal MD Signed By: <Electronically signed by Angi Aggarwal MD in OV> 02/28/242100 DD/ 99 TD/TT: 02/28/242099 Director Marketing: us [facility] External Provider IMG US PROCEDURES Edited Result - Final * CBC auto differential (01/30/2024 8:57 AM EST) White Blood Count 5.2 4.8 - 10.8 X10*3/uL [facility] Red Blood Count 4.93 4.20 - 5.50 X10*6/uL [facility] Hemoglobin 15.1 12.0 - 16.0 g/dl [facility] Hematocrit 45.8 37.0 - 47.0 % [facility] Mean Corpuscular Volume 92.9 80.0 - 98.0 fL [facility] Mean Corpuscular Hemoglobin 30.6 27.0 - 33.0 pg [facility] Mean Corpuscular HGB Conc 33.0 31.0 - 35.0 g/dl [facility] Red Cell Distribution Width 11.9 11.0 - 16.0 % [facility] Platelet Count 223 160 - 400 X10*3/uL [facility] Mean Platelet Volume 11.4 9.4 - 12.3 fL [facility] Neutrophils Percent Auto 59.5 45 - 73 % [facility] Imm Gran Pct Auto 0.2 0.0 - 0.4 % [facility] Lymphocytes Percent Auto 28.6 20 - 40 % [facility] Monocytes Percent Auto 9.4 2 - 11 % [facility] Eosinophils Percent Auto 1.9 0 - 4 % [facility] Basophils Percent Auto 0.4 0 - 2 % [facility] NRBC Pct Auto 0.0 0.0 - 0.2 /100WBC [facility] Neutrophils Absolute Auto 3.1 2.0 - 8.3 x10*3/uL [facility] Imm Gran Abs Auto 0.01 0.00 - 0.03 X10*3/uL [facility] Lymphocytes Absolute Auto 1.5 1.2 - 4.9 X10*3/uL [facility] Monocytes Absolute Auto 0.5 0.1 - 1.2 X10*3/uL [facility] Eosinophils Absolute Auto 0.1 0.0 - 0.4 X10*3/uL [facility] Basophils Absolute Auto 0.0 0.0 - 0.2 X10*3/uL [facility] NRBC Abs Auto 0.000 0.0 - 0.012 X10*3/uL [facility] Blood Venous blood specimen / Unknown 01/30/2024 8:57 AM EST 01/30/2024 2:06 PM EST us Radha Leon MD LAB BLOOD ORDERABLES Final Re sult Performing Organization Address [facility] Phone Number [facility] [address] [place] [phone] * Mononucleosis Test, Qualitative (01/30/2024 8:57 AM EST) Monotest Negative Negative [facility] Blood Venous blood specimen / Unknown 01/30/2024 8:57 AM EST 01/30/2024 2:06 PM EST us Radha Leon MD LAB BLOOD ORDERABLES Final Re sult Performing Organization Address [facility] Co mi Phone Number [facility] [address] [place] [phone] * Ferritin (01/30/2024 8:57 AM EST) Ferritin 236 10 - 250 ng/mL [facility] Blood Venous blood specimen / Unknown 01/30/2024 8:57 AM EST 01/30/2024 2:06 PM EST us Radha Leon MD LAB BLOOD ORDERABLES Final Re sult Performing Organization Address [facility] de Phone Number [facility] [address] [place] [phone] * (ABNORMAL) POCT HGB A1C (01/29/2024 12:04 PM EST) Hemoglobin A1C 6.3(A) 4.0 - 6.0 % QC Media Lot # [id number] Lot# Expiration Date 8,126 Blood 01/29/2024 12:0 4 PM EST Radha Leon MD POINT OF CARE TEST ENTER/EDIT ORDERABLES Final Result * POCT Glucose (01/29/2024 12:03 PM EST) Glucose Blood, POC 178 60 - 200 mg/dL Comment:Random QC Media Lot # [id number] Lot# Expiration Date 4,825 Blood Capillary blood specimen / Unknown 01/29/2024 12:03 PM EST Radha Leon MD POINT OF CARE TEST ENTER/EDIT ORDERABLES Final Result * BI Mammogram Screening Tomosynthesis Bilateral (2023 3:00 PM EDT) Anatomical Region Laterality Modality Breast Bilateral Mammography 2023 3:00 PM EDT Narrative 07/22/2023 7:34 PM EDT ? [facility] [place] ? [address] ?[place] [address] ? Mammography Report ? Signed ? Patient: Neeru Garcia ?MR#: [id number] ?? [id number] ? : 1965 ?Acct:[id number] ? Age/Sex: 57 / F ?ADM Date: 05/20/24 ? Loc: HO.MAMMO ? Attending Dr: Radha Leon MD ? Ordering Physician: Radha Leon MD ?Results: 2Be ?? nign Findings ? Date of Service: 07/09/23 ?Follow Up: 1 Year From Orig ?? inal Mammogram ? Procedure(s): MM tomosynthesis screening BI ?? Accession Number(s): [id number] ? cc: Radha Leon MD ? EXAMINATION: ?? MM SCREENING DIGITAL BREAST TOMOSYNTHESIS, BILATERAL ? CLINICAL INFORMATION: ? Screening. Asymptomatic. ? COMPARISON: ?? Mammography: This study is compared with prior exams dating back to ?? 2017. ? TECHNIQUE: ?? Digital breast tomosynthesis is performed in both the craniocaudal and ?? mediolateral oblique views along with computer-aided detection (CAD). ?? Synthesized 2D images are generated from the tomosynthesis. ? FINDINGS: ?? The breasts are heterogeneously dense, which may obscure small masses ?? (ACR BI-RADS breast composition Category c). ? There are no significant masses, abnormal calcifications, or other ?? abnormalities. ? There is a tissue marker in the superior aspect of the right breast ?? from prior benign percutaneous biopsy. ? There are few, benign, coarse calcifications in the left breast ?? contains within a well-circumscribed benign mass. This is ?? 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 ? MM/MM tomosynthesis screening BI ?? IMPRESSION: ?? No mammographic evidence of malignancy. ? ASSESSMENT: ? BI-RADS BI-RADS 2 - Benign Findings ? RECOMMENDATION: ?? Routine annual mammography screening. ? 1 year F/U ? This examination should not preclude the clinical evaluation of a ?? suspicious palpable abnormality. ? This patient's information was entered into a reminder system with a ?? target due date for their next mammogram. ? Dictated By: ?Sparkle Sheehan MD ? Signed By: ?<Electronically signed by Sparkle Sheehan MD in OV> ? 07/22/230 ? DD/ 1500 ? TD/TT: ? Director Marketing: ? Procedure Note Donotuseinterpreter, Image - 07/22/2023 [facility] [address] [place] [address] Mammography Report Signed Patient: Shani Garcia#: [id number] : 1965Acct:[id number] Age/Sex: 57 / FADM Date: 07/09/23 Loc: HO.MAMMO Attending Dr: Radha Leon MD Ordering Physician: Radha Leon MDResults: 2Be nign Findings Date of Service: 07/09/23Follow Up: 1 Year From Orig inal Mammogram Procedure(s): MM tomosynthesis screening BI Accession Number(s): [id number] cc: Radha Leon MD EXAMINATION: MM SCREENING DIGITAL BREAST TOMOSYNTHESIS, BILATERAL CLINICAL INFORMATION: Screening. Asymptomatic. COMPARISON: Mammography: This study is compared with prior exams dating back to 2017. TECHNIQUE: Digital breast tomosynthesis is performed in both the craniocaudal and mediolateral oblique views along with computer-aided detection (CAD). Synthesized 2D images are generated from the tomosynthesis. FINDINGS: The breasts are heterogeneously dense, which may obscure small masses (ACR BI-RADS breast composition Category c). There are no significant masses, abnormal calcifications, or other abnormalities. There is a tissue marker in the superior aspect of the right breast from prior benign percutaneous biopsy. There are few, benign, coarse calcifications in the left breast contains within a well-circumscribed benign mass. 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 MM/MM tomosynthesis screening BI IMPRESSION: No mammographic evidence of malignancy. ASSESSMENT: BI-RADS BI-RADS 2 - Benign Findings RECOMMENDATION: Routine annual mammography screening. 1 year F/U This examination should not preclude the clinical evaluation of a suspicious palpable abnormality. This patient's information was entered into a reminder system with a target due date for their next mammogram. Dictated By: Sparkle Sheehan MD Signed By: <Electronically signed by Sparkle Sheehan MD in OV> 07/22/23 1930 DD/ 1500 TD/TT: Director Marketing: Radha Leon MD IMG BI PROCEDURES Edited Resu lt - Final * (ABNORMAL) Lipid Panel, Standard (04/25/2023 10:31 AM EST) Triglycerides 111 <150 mg/dL [facility] Comment:Desirable Triglyceri de: less than 150 mg/dLBorderline High Triglyceride 150-199 mg/dLHigh Triglyceride: 200-499 mg/dLVery High Triglyceride: greater than or equal to 5OO mg/dL Cholesterol 216(H) <200 mg/dL [facility] Comment:Desirable Cholestero l: less than 200 mg/dLBorderline High Cholesterol: 200-239 mg/dLHigh Cholesterol: greater than 239 mg/dL LDL Cholesterol Calculated 138(H) <100 mg/dL [facility] Comment:Desirable LDL: less than 100 mg/dLNear Optimal/Above Optimal LDL: 110- 129 mg/dLBorderline High LDL: 130-159 mg/dLHigh LDL: 160-189 mg/dLVery High LDL: greater than or equal to 190 mg/dL HDL Cholesterol 56 >40 mg/dL [facility] Comment:Desirable HDL: great er than 40 mg/dL Note: This HDL assay may give artificially low results in patients with liver disease. Blood Venous blood specimen / Unknown 04/25/2023 10:31 AM EST 04/25/2023 2:42 PM EST Radha Leon MD LAB BLOOD ORDERABLES Final Re sult [facility] [address] [place] [address] [phone] * Hm Diabetes Eye Exam (12/28/2022) Eye Exam Normal Normal Narrative Radha Leon MD - 12/28/2022 No diabetic retinopathy Radha Leon MD HEALTH MAINTENANCE Final Resu lt * ALBUMIN, RANDOM URINE W/CREATININE (12/08/2020 8:41 AM EDT) Microalbumin Urine <0.2 See Note: mg/dL [facility] Comment: Reference Range: ?? Reference Range Not established Microalb/Creat Ratio NOTE <30 mcg/mg creat [facility] Comment: NOTE: The urine albumin value is less than ?? 0.2 mg/dL therefore we are unable to calculate ?? excretion and/or creatinine ratio. ?? The ADA defines abnormalities in albumin excretion as follows: ?? Albuminuria Category ?Result (mcg/mg creatinine) ?? Normal to Mildly increased ?? <30 Moderately increased ? 30-299 ?? Severely increased ? > OR = 300 ?? The ADA recommends that at least two of three specimens collected within a 3-6 month period be abnormal before considering a patient to be within a diagnostic category. Creatinine, Urine 39 20 - 275 mg/dL [facility] 12/08/2020 8:41 AM EDT Radha Leon MD LAB URINE ORDERABLES Final Re sult [facility] [address] * Colonoscopy (03/14/2016) Colonoscopy Normal Normal Narrative Barb Allen - 03/14/2016 Recommended 10 year follow up Shona Provider HEALTH MAINTENANCE Final Result from Last 3 Months or Most Recently Relevant to Health Maintenance Insurance [facility] C3 DENTAL-[facility] MEDICAID STAND ADULT Care Teams Python Web Developer Relationship Specialty Start Date End Date Radha Leon MD [address] [place] [address] PCP - General Family Medicine 02/19/18
--- OUTSIDE RECORDS SUMMARY | 2024-03-18 14:33 | XMS_ITS | Encounter Summary ---
Author Organization [employer] Address [address] [facility] 7 [place] [address] Care Team Providers Care Door Slinger Name Role Phone Radha Leon MD Primary Care Provider [phone] Reason for Visit * Reason Onset Date Comments Med Refill 06/15/2022 Encounter Details Date Type Department Care Team ([facility] st Contact Info) Description 06/15/2022 Telephone [facility] MEDICINE [address] [place] [address] Radha Leon MD [address] [place] [address] [phone] Med Refill Social History Tobacco Use Types Packs/Day Years Used Date Smoking Tobacco: Never Passive Smoke Exposure: Never Smokeless Tobacco: Never Alcohol Use Standard Drinks/Week Comments Never 0 (1 standard drink = 0.6 oz pur e alcohol) Depression Answer Date Recorded Patient Health Questionnaire-9 Score 14 05/04/2022 Depression Answer Date Recorded Patient Health Questionnaire-2 Score 3 05/04/2022 Comments Unknown Sex and Gender Information Value Date Recorded Sex Assigned at Female 12/19/2021 10:20 AM EDT Legal Sex Female 10:20 AM EDT Gender Identity Female 12/19/2021 10:20 AM EDT Sexual Orientation Straight 12/19/2021 10 :20 AM EDT documented as of this encounter Miscellaneous Notes * Telephone Encounter - Jesu Alexander - 06/15/2022 12:54 PM EDT Tc from pt requesting med refill Morphine cr 30 mg documented in this encounter Plan of Treatment Upcoming Encounters Date Type Department Care Team (Late st Contact Info) Description 04/16/2024 9:00 AM EST Clinical Support [facility] CHC MED & PEDS [address] [place] [address] Mariangel Ha, RN [address] [place] [address] documented as of this encounter Visit Diagnoses Not on filedocumented in this encounter Additional Health Concerns Assessment Noted Time PHQ-9 Depression Total Score: 14 023 12:32 PM EDT documented as of this encounter Care Teams Door Slinger Relationship Specialty Start Date End Date Radha Leon MD [address] [place] [address] PCP - General Family Medicine 02/19/18 documented as of this encounter
--- OUTSIDE RECORDS SUMMARY | 2024-03-18 14:33 | XMS_ITS | Encounter Summary ---
Author Organization [employer] Address 75 [facility] 7 [place] [address] Care Team Providers Care Laborer Stores Name Role Phone Radha Leon MD Primary Care Provider [phone] Reason for Visit * Reason Onset Date Comments Med Refill 04/30/2023 Encounter Details Date Type Department Care Team ([facility] st Contact Info) Description 04/30/[address] [facility] MEDICINE [address] [place] [address] Radha Leon MD [address] [place] [address] [phone] Med Refill Social History Tobacco Use Types Packs/Day Years Used Date Smoking Tobacco: Never Passive Smoke Exposure: Never Smokeless Tobacco: Never Alcohol Use Standard Drinks/Week Comments Never 0 (1 standard drink = 0.6 oz pur e alcohol) Depression Answer Date Recorded Patient Health Questionnaire-9 Score 14 05/04/2022 Housing Stability Answer Date Recorded What is your housing situation today? I have radha mendosa 12/13/[address] you li ve. Do you have problems with any of the following? None of the above 12/13/2022 Food Insecurity Answer Date Recorded Within the past 12 months, y ou worried that your food would run out before you got money to buy more: Never True 12/13/2022 Within the past 12 months,th e food you bought just didn't last and you didn't have enough money to get more: Never True Transportation Answer Date Recorded In the past 12 months, has l ack of transportation kept you from medical appts, meetings, work or from getting things needed for daily living? No 12/13/2022 Utilities Answer Date Recorded In the past 12 months, has t he electric, gas, oil or water company threatened to shut off services in your home? No 12/13/2022 Depression Answer Date Recorded Patient Health Questionnaire-2 Score 3 05/04/2022 Comments Unknown Sex and Gender Information Value Date Recorded Sex Assigned at Female 12/19/2021 10:20 AM EDT Legal Sex Female 10:20 AM EDT Gender Identity Female 12/19/2021 10:20 AM EDT Sexual Orientation Straight 12/19/2021 10 :20 AM EDT documented as of this encounter Miscellaneous Notes * Telephone Encounter - Maya Chilel LPN - 04/30/2023 12:59 PM EDT Please review * Telephone Encounter - Karla Randhawa - 04/30/2023 12:39 PM EDT Tc from [facility] with [facility] calling to inform they receive a script for budesonide (Pulmicort) 90MCG/ACT inhaler but they are only making 180MG documented in this encounter Plan of Treatment Upcoming Encounters Date Type Department Care Team (Late st Contact Info) Description 04/16/2024 9:00 AM EST Clinical Support [facility] MED & PEDS [address] [place] [address] Mariangel Ha RN [address] [place] [address] documented as of this encounter Visit Diagnoses Not on filedocumented in this encounter Additional Health Concerns Assessment Noted Time PHQ-9 Depression Total Score: 14 023 12:32 PM EDT documented as of this encounter Care Teams Laborer Stores Relationship Specialty Start Date End Date Radha Leon MD 505 [place] [address] PCP - General Family Medicine 02/19/18 documented as of this encounter
--- OUTSIDE RECORDS SUMMARY | 2024-03-18 14:33 | XMS_ITS | Encounter Summary ---
Author Organization [employer] Address 75 [facility] 7 [place] [address] Care Team Providers Care Case Assistant Name Role Phone Radha Leon MD Primary Care Provider [phone] Reason for Visit * Reason Onset Date Comments Med Refill 01/19/2022 Encounter Details Date Type Department Care Team ([facility] st Contact Info) Description 01/19/2022 Refill [facility] CHC MED & PEDS [address] [place], [place] [phone] Radha Leon MD [address] [place] [address] Chronic pain syndrome (Primary Dx) Social History Tobacco Use Types Packs/Day Years Used Date Smoking Tobacco: Never Assessed Comments Unknown Sex and Gender Information Value Date Recorded Sex Assigned at Female 12/19/2021 10:20 AM EDT Legal Sex Female 10:20 AM EDT Gender Identity Female 12/19/2021 10:20 AM EDT Sexual Orientation Straight 12/19/2021 10 :20 AM EDT documented as of this encounter Miscellaneous Notes * Telephone Encounter - Delaney Mosley MD - 01/19/2022 5:02 PM EST Approving, but needs appt for additional refills. * Telephone Encounter - Regine Cruz - 01/19/2022 3:40 PM EST Tc from pt calling requesting a refill for Morphine ER 30mg. PCP documented in this encounter Plan of Treatment Upcoming Encounters Date Type Department Care Team ([facility] st Contact Info) Description 04/16/2024 9:00 AM EST Clinical Support [facility] CHC MED & PEDS [address] [place] [address] Mariangel Ha, RN [address] [place] [address] documented as of this encounter Visit Diagnoses Diagnosis Chronic pain syndrome- Primary documented in this encounter Care Teams Case Assistant Relationship Specialty Start Date End Date Radha Leon MD [address] [place] [address] PCP - General Family Medicine 02/19/18 documented as of this encounter
--- OUTSIDE RECORDS SUMMARY | 2024-03-18 14:33 | XMS_ITS | Encounter Summary ---
Author Organization [employer] Address 75 [facility] 7 [place] [address] Care Team Providers Care Podiatry Doctor Name Role Phone Radha Leon MD Primary Care Provider [phone] Reason for Visit * Reason Onset Date Comments Med Refill 10/19/2023 Encounter Details Date Type Department Care Team ([facility] st Contact Info) Description 10/19/2023 Telephone [facility] MEDICINE [address] [place] [address] Radha Leon MD [address] [place] [address] [phone] Med Refill Social History Tobacco Use Types [...] encounter Miscellaneous Notes * Telephone Encounter - Ronald Thomas - 10/19/2023 9:51 AM EDT TC from pt requesting medication refill. Medications needing refill : morphine CR (MS Contin) 30 MG 12 hr tablet To be sent to: [id number] - [place], [place] - [address] [place] [address] AT [facility] documented in this encounter Plan of Treatment Upcoming Encounters Date Type Department Care Team (Late st Contact Info) Description 04/16/2024 9:00 AM EST Clinical Support [facility] CHC MED & PEDS [address] [place] [address] Mariangel Ha, KENDRA [address] [place] [address] documented as of this encounter Visit Diagnoses Not on filedocumented in this encounter Additional Health Concerns Assessment Noted Time PHQ-9 Depression Total Score: 14 023 12:32 PM EDT documented as of this encounter Care Teams Podiatry Doctor Relationship Specialty Start Date End Date Radha Leon MD [address] [place] [address] PCP - General Family Medicine 02/19/18 documented as of this encounter
--- OUTSIDE RECORDS SUMMARY | 2024-03-18 14:33 | XMS_ITS | Encounter Summary ---
Author Organization [employer] Address 75 [facility] 7t [place] [address] Care Team Providers Care External Auditor Name Role Phone Radha Leon MD Primary Care Provider [phone] Reason for Visit * Reason Onset Date Comments Med Refill 09/05/2023 Encounter Details Date Type Department Care Team ([facility] Contact Info) Description 09/05/2023 Telephone [facility] MEDICINE [address] [place], [place] [phone] Radha Leon MD [address] [place], [place] [phone] Med Refill Social History Tobacco Use Types [...] is your housing situation today? I have ardha mendosa 01/29/[address] you [...] encounter Miscellaneous Notes * Telephone Encounter - Carrie Bailey - 09/05/2023 12:59 PM EDT Tc from pt requesting a refill for morphine CR (MS Contin) 30 MG 12 hr tablet documented in this encounter Plan of Treatment Upcoming Encounters Date Type Department Care Team (Late st Contact Info) Description 04/16/2024 9:00 AM EST Clinical Support [facility] CHC MED & PEDS [address] [place] [address] Mariangel Ha, KENDRA [address] [place] [address] documented as of this encounter Visit Diagnoses Not on filedocumented in this encounter Additional Health Concerns Assessment Noted Time PHQ-9 Depression Total Score: 14 05/04/ 023 12:32 PM EDT documented as of this encounter Care Teams External Auditor Relationship Specialty Start Date End Date Radha Leon MD [address] [place] [address] PCP - General Family Medicine 02/19/18 documented as of this encounter
--- OUTSIDE RECORDS SUMMARY | 2024-03-18 14:34 | XMS_ITS | Encounter Summary ---
Author Organization [employer] Address [address] [facility] 7t [place] [address] Care Team Providers Care Air Conditioning Insulation Installer Name Role Phone Radha Leon MD Primary Care Provider [phone] Reason for Visit * Reason Onset Date Comments Med Refill 12/13/2022 Encounter Details Date Type Department Care Team ([facility] Contact Info) Description 12/13/2022 Telephone [facility] MEDICINE [address] [place] [address] Radha Leon MD [address] [place], [place] [phone] Med Refill Social History Tobacco Use Types [...] * Telephone Encounter - Carrie Bailey - 12/13/2022 12:16 PM EDT Tc from pt requesting to a refill for morphine CR (MS Contin) 30 MG 12 hr tablet documented in this encounter Plan of Treatment Upcoming Encounters Date Type Department Care Team ([facility] st Contact Info) Description 04/16/2024 9:00 AM EST Clinical Support [facility] MED & PEDS [address] [place] [address] Mariangel Ha, KENDRA [address] [place] [address] documented as of this encounter Visit Diagnoses Not on filedocumented in this encounter Additional Health Concerns Assessment Noted Time PHQ-9 Depression Total Score: 14 023 12:32 PM EDT documented as of this encounter Care Teams Air Conditioning Insulation Installer Relationship Specialty Start Date End Date Radha Leon MD [address] [place] [address] PCP - General Family Medicine 02/19/18 documented as of this encounter
--- OUTSIDE RECORDS SUMMARY | 2024-03-18 14:34 | XMS_ITS | Encounter Summary ---
Author Organization [employer] Address [address] [facility] 7t [place] [address] Care Team Providers Care Upstream Biomanufacturing Technician Name Role Phone Radha Leon MD Primary Care Provider [phone] Reason for Visit * Reason Onset Date Comments Med Refill 09/14/2022 Encounter Details Date Type Department Care Team ([facility] Contact Info) Description 09/14/2022 Telephone [facility] MEDICINE [address] [place], [place] [phone] Radha Leon MD [address] [place], [place] [phone] Med Refill Social History Tobacco Use Types [...] * Telephone Encounter - Carrie Bailey - 09/14/2022 8:33 AM EDT Tc from pt requesting a refill for morphine CR (MS Contin) 30 MG 12 hr tablet documented in this encounter Plan of Treatment Upcoming Encounters Date Type Department Care Team ([facility] st Contact Info) Description 04/16/2024 9:00 AM EST Clinical Support [facility] CHC MED & PEDS [address] [place] [address] Mariangel Ha, KENDRA [address] [place] [address] documented as of this encounter Visit Diagnoses Not on filedocumented in this encounter Additional Health Concerns Assessment Noted Time PHQ-9 Depression Total Score: 14 05/04/ 023 12:32 PM EDT documented as of this encounter Care Teams Upstream Biomanufacturing Technician Relationship Specialty Start Date End Date Radha Leon MD [address] [place] [address] PCP - General Family Medicine 02/19/18 documented as of this encounter
--- OUTSIDE RECORDS SUMMARY | 2024-03-18 14:34 | XMS_ITS | Encounter Summary ---
Author Organization [employer] Address [address] [facility] 7t [place] [address] Care Team Providers Care Senior Net Developer Name Role Phone Radha Leon MD Primary Care Provider [phone] Encounter Details Date Type Department Care Team (Late st Contact Info) Description 12/27/2022 Abstract [facility] MEDICINE [address] [place] [address] Radha Leon MD [address] [place], [place] [phone] Social History Tobacco Use Types Packs/Day Years Used Date Smoking Tobacco: Never Passive Smoke Exposure: Never Smokeless Tobacco: Never Alcohol Use Standard Drinks/Week Comments Never 0 (1 standard drink = 0.6 oz pur e alcohol) Depression Answer Date Recorded Patient Health Questionnaire-9 Score 14 05/04/2022 Housing Stability Answer Date Recorded What is your housing situation today? I have radhakyra mendosa 12/13/[address] you [...] t he electric, gas, oil or water [employer] threatened to shut off services in your home? No 12/13/2022 Depression Answer Date Recorded Patient Health Questionnaire-2 Score 3 05/04/2022 Comments Unknown Sex and Gender Information Value Date Recorded Sex Assigned at Female 12/19/2021 10:20 AM EDT Legal Sex Female 10:20 AM EDT Gender Identity Female 12/19/2021 10:20 AM EDT Sexual Orientation Straight 12/19/2021 10 :20 AM EDT documented as of this encounter Plan of Treatment Upcoming Encounters Date Type Department Care Team (Late st Contact Info) Description 04/16/2024 9:00 AM EST Clinical Support [facility] MED & PEDS [address] [place] [address] Mariangel Ha, KENDRA [address] [place], [place] [phone] documented as of this encounter Procedures Procedure Name Priority Date/Time Associated Diagnosis Comments COLONOSCOPY Routine 03/14/2016 documented in this encounter Results * Colonoscopy (03/14/2016) Colonoscopy Normal Normal Narrative Barb Allen - 03/14/2016 Recommended 10 year follow up us Historical Provider HEALTH MAINTENANCE Final Result documented in this encounter Visit Diagnoses Not on filedocumented in this encounter Additional Health Concerns Assessment Noted Time PHQ-9 Depression Total Score: 14 023 12:32 PM EDT documented as of this encounter Care Teams Senior Net Developer Relationship Specialty Start Date End Date Radha Leon MD [address] [place] [address] PCP - General Family Medicine 02/19/18 documented as of this encounter
--- OUTSIDE RECORDS SUMMARY | 2024-03-18 14:34 | XMS_ITS | Encounter Summary ---
Author Organization [employer] Address [address] [facility] 7t [place] [address] Care Team Providers Care Electronics Technician Name Role Phone Radha Leon MD Primary Care Provider Encounter Details Date Type Department Care Team (Latest Contact Info) Description 03/18/2024 9:45 AM EST Procedure Visit [facility] CHC MED & PEDS [address] [place], [place] [phone] Radha Leon MD [address] [place] [address] Vaginal discharge (Primary Dx); Encounter for gynecological examination with Papanicolaou smear of cervix Social History Tobacco Use Types Packs/Day Years [...] AM EDT documented as of this encounter Last Filed Vital Signs Vital Sign Reading [...] Mass Index 23.74 03/18/2024 9:58 AM EST documented in this encounter Progress Notes * Radha Leon MD - 03/18/2024 9:45 AM EST Subjective Neeru Blum is a 58 y.o. No obstetric history on file. woman here for pap. LMP:2021 Menses frequency:absent Menses concerns:N/A Desires within the next year:N/A Brith control:N/A Breast concerns:none Menopausal symptoms negative for: hot flashes, night sweats, urinary incontinence and vaginal dryness. Review of Systems Review of Systems Constitutional: Negative for activity change, chills, fever and unexpected weight change. Respiratory: Negative for cough, shortness of breath and wheezing. Cardiovascular: Negative for chest pain, palpitations and leg swelling. Gastrointestinal: Negative for abdominal pain and blood in stool. Endocrine: Negative for polydipsia and polyuria. Genitourinary: Negative for decreased urine volume, difficulty urinating, dysuria and hematuria. Musculoskeletal: Negative for arthralgias and gait problem. Skin: Negative for color change and rash. Neurological: Negative for dizziness and headaches. Hematological: Negative for adenopathy. Psychiatric/Behavioral: Negative for behavioral problems, dysphoric mood, hallucinations, sleep disturbance and suicidal ideas. The patient is not nervous/anxious. No results found for: PAPPA No results found for: HMMAMMO Previous paps:normal 5 years ago Mammogram: normal june 2023 Objective BP 137/82 (BP Location: Left arm, Patient Position: Sitting, BP Cuff Size: Adult) [id number] Temp 98.7 ??F (37.1 ??C) (Oral) Resp 16 Ht 5' 3 (1.6 m) Wt 134 lb (60.8 kg) LMP 02/19/2021 (Within Years) SpO2 96% BMI 23.74 kg/m?? Physical Exam Vitals reviewed. Exam conducted with a centrifugal chiller technician present. Constitutional: Appearance: Normal appearance. Cardiovascular: Rate and Rhythm: Normal rate and regular rhythm. Chest: Chest wall: No mass, deformity or tenderness. Breasts: Prosper Score is 5. Right: Normal. No bleeding, inverted nipple, mass, nipple discharge, skin change or tenderness. Left: Normal. No bleeding, inverted nipple, mass, nipple discharge, skin change or tenderness. Genitourinary: Exam position: Lithotomy position. Prosper stage (genital): 5. Labia: Right: No rash, lesion or injury. Left: No rash, lesion or injury. Vagina: Normal. Cervix: Discharge present. No cervical motion tenderness, friability, lesion or erythema. Uterus: Normal. Not tender. Adnexa: Right: No mass, tenderness or fullness. Left: No mass, tenderness or fullness. Lymphadenopathy: Upper Body: Right upper body: No axillary adenopathy. Left upper body: No axillary adenopathy. Problem List Items Addressed This Visit None Pap with HPV testing done STI testing offered but not high risk. Single and not SA. Preventative care and harm reduction discussed.Call with results if abnormal. Colonoscopy due 2026.Mammogram Due 06/2024. documented in this encounter Plan of Treatment Upcoming Encounters Date Type Department Care Team ([facility] st Contact Info) Description 04/16/2024 9:00 AM EST Clinical Support [facility] MED & PEDS [address] [place] [address] Mariangel Ha RN [address] [place] [address] Scheduled Orders Name Type Priority Associated Diagnoses Orde r Schedule Pap Smear Pathology and Cytology Routine Encounter for gynecological examination with Papanicolaou smear of cervix Ordered: 03/18/2024 Bacterial Vaginosis Panel Microbiology Routine Vaginal discharge Ordered: 03/18/2024 documented as of this encounter Visit Diagnoses Diagnosis Vaginal discharge- Primary Leukorrhea, not specified as infective Encounter for gynecological examination with Papanicolaou smear of cervix documented in this encounter Additional Health Concerns Assessment Noted Time PHQ-9 Depression Total Score: 8 01/29/20 24 11:47 AM EST documented as of this encounter Care Teams Electronics Technician Relationship Specialty Start Date End Date Radha Leon MD [address] [place] [address] PCP - General Family Medicine 02/19/18 documented as of this encounter
--- OUTSIDE RECORDS SUMMARY | 2024-03-18 14:34 | XMS_ITS | Encounter Summary ---
Author Organization [employer] Address 75 [facility] 7 [place] [address] Care Team Providers Care Job Setter Honing Name Role Phone Radha Leon MD Primary Care Provider [phone] Reason for Visit * Reason Onset Date Comments Med Refill 11/30/2023 Encounter Details Date Type Department Care Team ([facility] Contact Info) Description 11/30/2023 Telephone [facility] MEDICINE [address] [place] [address] Radha Leon MD [address] [place] [address] [phone] Med Refill Social History Tobacco Use Types [...] * Telephone Encounter - Ronald Thomas - 11/30/2023 1:16 PM EDT TC from pt requesting medication refill. Medications needing refill : morphine CR (MS Contin) 30 MG 12 hr tablet To be sent to: [id number] - [place], [place] - [address] [place] [address] AT [facility] documented in this encounter Plan of Treatment Upcoming Encounters Date Type Department Care Team (Late st Contact Info) Description 04/16/2024 9:00 AM EST Clinical Support [facility] CHC MED & PEDS [address] [place] [address] Mariangel Ha, KENDRA [address] [place] [address] documented as of this encounter Visit Diagnoses Not on filedocumented in this encounter Additional Health Concerns Assessment Noted Time PHQ-9 Depression Total Score: 14 023 12:32 PM EDT documented as of this encounter Care Teams Job Setter Honing Relationship Specialty Start Date End Date Radha Leon MD [address] [place] [address] PCP - General Family Medicine 02/19/18 documented as of this encounter
--- OUTSIDE RECORDS SUMMARY | 2024-03-18 14:34 | XMS_ITS | Encounter Summary ---
Author Organization [facility] [facility] Address [address] [place] [address] 7 [place] [address] Care Team Providers Care Automatic Lehr Operator Name Role Phone Radha Leon MD Primary Care Provider Reason for Visit * Reason Comments Med Refill Encounter Details Date Type Department Care Team ([facility] Contact Info) Description 07/21/2022 Refill [facility] MED & PEDS [address] [place] [address] Delaney Mosley MD [address] [place] [address] RUQ abdominal pain Social History Tobacco Use Types Packs/Day Years [...] Upcoming Encounters Date Type Department Care Team ([facility] Contact Info) Description 04/16/2024 9:00 AM EST Clinical Support [facility] CHC MED & PEDS [address] [place], [place] [phone] Mariangel Ha RN [address] [place], [place] [phone] documented as of this encounter Visit Diagnoses Diagnosis RUQ abdominal pain Abdominal pain, right upper quadrant documented in this encounter Additional Health Concerns Assessment Noted Time PHQ-9 Depression Total Score: 14 023 12:32 PM EDT documented as of this encounter Care Teams Automatic Lehr Operator Relationship Specialty Start Date End Date Radha Leon MD [address] [place] [address] PCP - General Family Medicine 02/19/18 documented as of this encounter
--- OUTSIDE RECORDS SUMMARY | 2024-03-18 14:34 | XMS_ITS | Encounter Summary ---
Author Organization [employer] Address [address] [place] [address] Care Team Providers Care Consumer Lender Name Role Phone Radha Leon MD Primary Care Provider [phone] Encounter Details Date Type Department Care Team ([facility] st Contact Info) Description 02/27/2024 Orders Only [facility] External Provider, [facility] Social History Tobacco Use Types Packs/Day Years [...] Upcoming Encounters Date Type Department Care Team ([facility] st Contact Info) Description 04/16/2024 9:00 AM EST Clinical Support [facility] MED & PEDS [address] [facility] [place] [address] Mariangel Ha, RN [address] [facility] [place] [address] documented as of this encounter Procedures Procedure Name Priority Date/Time Associated Diagnosis Comments US RENAL BI Routine 02/28/2024 9:00 PM EST documented in this encounter Results * US RENAL BI (02/28/2024 9:00 PM EST) Anatomical Region Laterality Modality Abdomen Ultrasound 02/28/2024 9:00 PM EST Narrative 02/28/2024 9:02 PM EST ? [facility] Adult Primary Care ?[address] [facility] ? [place] [address] ? Ultrasound Report ? Signed ? Patient: Neeru Garcia ?MR#: [id number] ?? [id number] ? : 1965 ?Acct:[id number] ? Age/Sex: 58 / F ?ADM Date: // ? Loc: HO.HMGCX ? Attending Dr: Monika Guerin BRUSHER-BC ? Ordering Physician: Monika Guerin BRUSHER-BC ?? Date of Service: 02/27/24 ?? Procedure(s): US renal BI ?? Accession Number(s): [id number] ? cc: Radha Leon MD; Monika Guerin BRUSHER-BC ? CLINICAL HISTORY: N28.1 - Cyst of kidney, acquired ? US Renal ? Comparison: US/OT/[place]/SR - US RENAL BI - 02/20/23 10:03 [...] by Angi Aggarwal MD in OV> ? 02/28/24 2101 ? DD/ 2100 ? TD/TT: 02/28/24 2100 ? Product Manufacturing Professional: ? Procedure Note Fidencionas, Image - 02/28/2024 [facility] Adult Primary Care [address] [place] [address] [place] [address] Ultrasound Report Signed Patient: Neeru GarciaMR#: [id number] : 1965Acct:[id number] Age/Sex: 58 / FADM Date: 02/27/24 Loc: .HMGCX Attending Dr: Monika THORNE Ordering Physician: Monika Guerin Date of Service: 02/27/24 Procedure(s): US renal BI Accession Number(s): [id number] cc: Radha Leon MD; Monika Guerin CLINICAL HISTORY: N28.1 - Cyst of kidney, acquired US Renal Comparison: US/OT/[place]/SR - US RENAL BI - 02/20/23 10:03 [...] in OV> 02/28/242100 DD/ 99 TD/TT: 02/28/242099 Product Manufacturing Professional: [facility] External Provider IMG US PROCEDURES Edited Result - Final documented in this encounter Visit Diagnoses Not on filedocumented in this encounter Additional Health Concerns Assessment Noted Time PHQ-9 Depression Total Score: 8 01/29/20 24 11:47 AM EST documented as of this encounter Care Teams Consumer Lender Relationship Specialty Start Date End Date Radha Leon MD [address] [place] [address] PCP - General Family Medicine 02/19/18 documented as of this encounter
--- OUTSIDE RECORDS SUMMARY | 2024-03-18 14:34 | XMS_ITS | Encounter Summary ---
Author Organization [employer] Address [address] [facility] 7t [place] [address] Care Team Providers Care String Winding Machine Operator Name Role Phone Radha Leon MD Primary Care Provider [phone] Reason for Visit * Reason Onset Date Comments Nurse Triage 12/18/2023 Encounter Details Date Type Department Care Team ([facility] st Contact Info) Description 12/18/2023 Telephone [facility] MEDICINE [address] [place] [address] Radha Leon MD [address] [place] [address] [phone] Nurse Triage Social History Tobacco Use Types Packs/Day Years [...] encounter Miscellaneous Notes * Telephone Encounter - Patrizia Tracy RN - 12/18/2023 9:49 AM EDT Triage call Pt reports weight loss for the past year. Last documented weight is 135lb6.4oz on 04/25/23. Pt reports weight today is 128lbs. Pt is having difficulty eating. Pt develops abdominal discomfort, bloating, swelling. Pt has stopped eating gluten and lactose based foods. Pt is passing flatus well and has BM qod. Pt does report constipation with use of rectal suppository 2x/week. Pt reports drinking adequate liquids. Pt also reports after 1pm becomes extremely tired every day and is unable to drive a car because of the possibility of falling asleep at the wheel. ASK apt with Dr. Leon 01/09/24 @ 1115am. Pt agrees with disposition. Home care encouraged to keep drinking liquids 6-8 glasses daily. Insurance is verified as active prior to booking. Protocol Used: Abdomen Bloating and Swelling (Adult) Protocol-Based Disposition: See in Office or Video Visit within 2 Weeks Video visit not offered Positive Triage Question: * Abdomen bloating is a chronic symptom (recurrent or ongoing AND present > 4 weeks) * All higher-acuity triage questions were negative Care Advice Discussed: * Reassurance and Education - Abdomen Bloating * General Care Advice for Bloating * Reasons To Call Back - Abdomen bloating lasts more than 1 week - New or worsening abdomen swelling - Constant pain lasting more than 2 hours - Intermittent pain (comes and goes, cramps) lasts over 48 hours - You become worse * What Is Lactose Intolerance? * What Is the Treatment for Lactose Intolerance? * Telephone Encounter - Leif Kenn - 12/18/2023 9:03 AM EDT Symptom: Weight Loss Outcome: Schedule an urgent appointment (within 4 hours) or talk to a nurse or provider soon Reason: Has diabetes The caller accepted this outcome. documented in this encounter Plan of Treatment Upcoming Encounters Date Type Department Care Team ([facility] st Contact Info) Description 04/16/2024 9:00 AM EST Clinical Support [facility] MED & PEDS [address] [place] [address] Mariangel Ha RN [address] [place] [address] documented as of this encounter Visit Diagnoses Not on filedocumented in this encounter Additional Health Concerns Assessment Noted Time PHQ-9 Depression Total Score: 14 05/04/ 023 12:32 PM EDT documented as of this encounter Care Teams String Winding Machine Operator Relationship Specialty Start Date End Date Radha Leon MD [address] [place] [address] PCP - General Family Medicine 02/19/18 documented as of this encounter
--- OUTSIDE RECORDS SUMMARY | 2024-03-18 14:34 | XMS_ITS | Encounter Summary ---
Author Organization [employer] Address [address] [facility] 7 [place] [address] Care Team Providers Care Hose Tester Name Role Phone Radha Leon MD Primary Care Provider [phone] Reason for Visit * Reason Onset Date Comments Med Refill 02/19/2024 Encounter Details Date Type Department Care Team ([facility] Contact Info) Description 02/19/2024 Refill [facility] MED & PEDS [address] [place] [address] Radha Leon MD [address] [place] [address] Chronic pain syndrome Social History Tobacco Use Types Packs/Day Years [...] encounter Miscellaneous Notes * Telephone Encounter - Erica Harris - 02/19/2024 10:36 AM EST TC from pt requesting medication refill. Medications needing refill : morphine CR (MS Contin) 30 MG 12 hr tablet To be sent to: [id number] - [address] AT [facility] documented in this encounter Plan of Treatment Upcoming Encounters Date Type Department Care Team ([facility] Contact Info) Description 04/16/2024 9:00 AM EST Clinical Support [facility] MED & PEDS [address] [place] [address] Mariangel Ha, KENDRA [address] [place] [address] documented as of this encounter Visit Diagnoses Diagnosis Chronic pain syndrome documented in this encounter Additional Health Concerns Assessment Noted Time PHQ-9 Depression Total Score: 8 01/29/20 24 11:47 AM EST documented as of this encounter Care Teams Hose Tester Relationship Specialty Start Date End Date Radha Leon MD [address] [place] [address] PCP - General Family Medicine 02/19/18 documented as of this encounter
--- OUTSIDE RECORDS SUMMARY | 2024-03-18 14:34 | XMS_ITS | Encounter Summary ---
Author Organization [employer] Address [address] [place] [address] Care Team Providers Care Skin Care Technician Name Role Phone Radha Leon MD Primary Care Provider [phone] Encounter Details Date Type Department Care Team (Latest Contact Info) Description 03/18/2024 Travel Social History Tobacco Use Types Packs/Day Years [...] Description 04/16/2024 9:00 AM EST Clinical Support [facility] MED & PEDS [address] [place] [address] Mariangel Ha RN [address] [place] [address] documented as of this encounter Visit Diagnoses Not on filedocumented in this encounter Additional Health Concerns Assessment Noted Time PHQ-9 Depression Total Score: 8 01/29/20 24 11:47 AM EST documented as of this encounter Care Teams Skin Care Technician Relationship Specialty Start Date End Date Radha Leon MD [address] [place] [address] PCP - General Family Medicine 02/19/18 documented as of this encounter
[2024-03-18 16:52] LABS: Bacterial Vaginosis PCR NEGATIVE (Negative); Candida Group PCR NOT DETECTED (Not Detect); Candida glab krusei PCR NOT DETECTED (Not Detect); Trichomonas vaginalis PCR NOT DETECTED (Not Detect)
== END 2024-03-18 13:34 | disposition home or self-care (01) ==
LOC: HO.CHCLDS 13:33
PROVIDERS: Visit Provider Pediatrics
DX: Z01.419 Encounter for gynecological examination (general) (routine) without abnormal findings (principal); N89.8 Other specified noninflammatory disorders of vagina
CPT/HCPCS: 81515

== ENCOUNTER 2024-05-19 15:12 | Outpatient (AMB) | payer MEDICAID, SELFPAY ==
--- NOTE | 2024-05-19 15:32 | A.OFFVIS_ITS ---
Intake Visit Reasons: 1yr followup/US (set) Intake Note: Patient patient presents for bilateral renal cyst and ultrasound results Imaging Completed:02/27/24 Urology Medication: none Blood Thinner: none Sat Tutor Required: No Accompanied by: Self / Same As Patient Allergies peanut [PEANUT] Allergy (Severe, Verified 05/19/24 16:04) THROAT CLOSES tree nut [TREE NUT] Allergy (Severe, Verified 05/19/24 16:04) THROAT CLOSES FRUIT, SKINS Allergy (Severe, Uncoded 05/19/24 16:04) THROAT CLOSES Medication List - Last Reconciled 05/19/24 by BINDU Curtis-VENUS cholecalciferol (vitamin D3) 50 mcg PO QAM metformin ER 750 mg PO DAILY HPI Comments Details: Neeru is a very pleasant 58 [address] patient of Dr. Leon. She has a PMH of chronic pain, Diabetes Type II, GERD, and asthma. She presents to the office today for follow-up of her bilateral parapelvic cysts of bilateral kidneys. In discussion with the patient today she reports since her last office visit here she has since cut out fried foods, dairy, and gluten out of her diet and feels this has been helpful in decreasing pain she had been experiencing in her right upper abdominal quadrant. she reports mortise recently over the last 2-3 weeks she has been experiencing a burning sensation to her back area right around the flank area. No CVA tenderness noted bilaterally. Recent renal imaging results reviewed with the patient today 03/15 bilateral kidneys are normal in size and echotexture. There are multiple peripelvic cyst within the bilateral kidneys measuring up to 2.3 cm in greatest dimension on the right and 2.3 cm in the greatest dimension on the left this is not significantly changed since last prior study. she reports feeling burning sensation worsens while at work however upon rest in application of a heating pad she does feel symptoms are relieved. We discussed further workup to include repeat imaging however patient feels she would like to continue with surveillance monitoring at this time as she does have alleviation of symptoms with OTC measures she otherwise denies any bothersome urinary issues. In office urinalysis results reviewed with the patient today. She denies urinary urgency, urinary frequency, incontinence, nocturia, hematuria, dysuria, foul smelling urine, changes to urinary stream, flank pain, fever, and or chills. She is happy with her current voiding parameters. Plan For the patient's burning sensation along the back, we will proceed with OTC measures in surveillance monitoring. We agreed on the possible neuropathic nature of her pain, given its response to rest. Stable renal cysts are to remain under routine observation without immediate intervention. Patient was informed and verbally consented to the use of an ambient scribe for clinic note documentation during this visit. Discussion Notes I discussed with the patient the intention to pursue further imaging to investigate the origins of her burning sensation thoroughly, beyond renal issues, suspected to be more muscular or neuropathic in nature. I advised if pain persists beyond conservative measures to return and or seek medical treatment. The patient was amenable to these approaches and verbalized understanding of the plan. [facility] Medical History Diabetes mellitus Chronic pain Asthma Social History Patient Tobacco Use Status: Never used Tobacco Review of Systems Const Reports as per HPI Eyes Reports no additional complaints ENT Reports no additional complaints Card Reports no additional complaints Resp Reports as per HPI GI Reports as per HPI Reports as per HPI Neuro Reports no additional complaints Psych Reports no additional complaints Endo Reports as per HPI Physical Exam Const General: cooperative, healthy appearing, comfortable, no acute distress, well developed, alert and awake Orientation/consciousness: patient oriented x3 Limitations: no limitations HEENT Head: Yes normal to inspection, Yes normocephalic and Yes atraumatic Ears: hearing grossly normal bilaterally Eyes General: appearance normal, both eyes and all related structures Neck Neck: Yes normal visual inspection and Yes trachea midline Chest Chest palpation & inspection: normal inspection of the chest Resp Effort & Inspection: normal respiratory effort and able to speak in complete sentences Cardio Rate: regular rate GI Inspection: Yes normal to inspection General: Yes no CVA tenderness Back/Spine/Pelvis Back: no CVA tenderness Skin General skin exam: no rashes or lesions noted Neuro General: patient oriented x3 Extrem General: Yes normal to inspection Psych Appearance: grossly normal and well kempt Mental Status: mental status grossly normal Speech and movement: Normal speech and movement present and Clear speech present Affect: normal affect Attitude: cooperative Thought process: Normal thought process present Thought content: Normal thought content present Insight: Fair insight present (Psych) Judgement: Fair judgement present (Psych) Results AMB Urinalysis, Automated UA Leukoctes 0 Luisa/uL Last Edit by [employer] on 05/19/24 15:41 UA Nitrite Last Edit by [employer] on 05/19/24 15:41 UA Urobilinogen 0.2 mg/dL Last Edit by [employer] on 05/19/24 15:41 UA Protein 0 mg/dL Last Edit by [employer] on 05/19/24 15:41 UA pH 6.0 Last Edit by [employer] on 05/19/24 15:41 UA Blood 0 Francesco/uL Last Edit by [employer] on 05/19/24 15:41 UA Specific Kinder 1.020 Last Edit by [employer] on 05/19/24 15:41 UA Ketone Last Edit by [employer] on 05/19/24 15:41 UA Bilirubin 0 mg/dL Last Edit by [employer] on 05/19/24 15:41 UA Glucose 0 mg/dL Last Edit by [employer] on 05/19/24 15:41 Results Reviewed Results Reviewed: Laboratory Last Values Urine pH (Auto) 6.0 05/19/24 15:40 Specific Kinder (Auto) 1.020 05/19/24 15:40 Urine Protein (Auto) 0 mg/dL 05/19/24 15:40 Glucose (UA)(Auto) 0 mg/dL 05/19/24 15:40 Urine Blood (Auto) 0 Francesco/uL 05/19/24 15:40 Urine Bilirubin (Auto) 0 mg/dL 05/19/24 15:40 Urine Urobilinogen (Auto) 0.2 mg/dL 05/19/24 15:40 Leukocyte Esterase (Auto) 0 Luisa/uL 05/19/24 15:40 Assessment & Plan Assessment & Plan (1) Parapelvic renal cyst: Code(s): N28.1 - Cyst of kidney, acquired Category: Medical Plan In office urinalysis results reviewed with the patient today; as noted above. Recent renal imaging results reviewed with the patient today; as noted above. We discussed potential causes of a burning sensation patient is experiencing will continue with surveillance monitoring patient will call office and or seek medical treatment if symptoms persist and/or worsen. Will continue with surveillance monitoring of peripelvic renal cyst She denies any bothersome urinary issues. She reports be happy with current voiding parameters. Will obtain renal ultrasound in 1 year. Follow-up in 1 year with imaging to be completed prior; or sooner with any issues, concerns, and or questions. Orders: Orders AMB Urinalysis Automated Today Z13.9 - Encounter for screening, unspecified US renal BI 1 Year N20.0 - Calculus of kidney Patient Instructions: The patient had an opportunity to ask questions regarding the treatment plan. All questions were answered. Physical exam, labs, and imaging were discussed and reviewed in detail. As well as risks, benefits, and discussion of treatment choices. No major barriers to understanding were identified. The patient expressed understanding and agreement with the above treatment plan. The patient was made aware they should contact our office by phone for worsening of their current condition, the appearance of new symptoms, or with any questions or concerns. Compliance is encouraged with any medications and follow up testing that is ordered. It is a privilege to be allowed the opportunity to participate in? your urological care.? Again, if you have any questions or concerns If you have any questions or concerns please do not hesitate to contact me. The office is [phone]. This note is constructed using voice recognition software. While every effort has been made to ensure accuracy dental instructor errors may have been included. Yours sincerely, MATI Curtis Coding Level of Care Code Est Pt Level 3 (84700) Complex EM visit Add On G2211 Diagnoses Parapelvic renal cyst N28.1
--- OUTSIDE RECORDS SUMMARY | 2024-05-19 17:12 | XMS_ITS | Encounter Summary ---
Author Organization [employer] Address [address] [facility] 7 [place] [address] Care Team Providers Care Bullet Casting Operator Name Role Phone Radha Leon MD Primary Care Provider [phone] Reason for Visit * Reason Onset Date Comments Med Refill 01/19/2022 Encounter Details Date Type Department Care Team ([facility] st Contact Info) Description 01/19/2022 Refill [facility] MED & PEDS [address] [place], [place] [id number] Radha eLon MD [address] [place] [address] Chronic pain syndrome (Primary Dx) Social History [...] Upcoming Encounters Date Type Department Care Team ([facility] st Contact Info) Description 06/23/2024 10:00 AM EDT Telemedicine [facility] MED & PEDS [address] [place] [address] Mariangel Ha, RN [address] [place] [address] documented as of this encounter Visit Diagnoses Diagnosis Chronic pain syndrome- Primary documented in this encounter Care Teams Bullet Casting Operator Relationship Specialty Start Date End Date Radha Leon MD [address] [place] [address] PCP - General Family Medicine 02/19/18 documented as of this encounter
--- OUTSIDE RECORDS SUMMARY | 2024-05-19 17:12 | XMS_ITS | Clinical Summary ---
Author Organization [employer] Address [address] [facility] 7t [place] [address] Care Team Providers Care System Developer Associate Manager Name Role Phone Radha Leon MD Primary Care Provider [phone] Allergies Active Allergy Reactions Criticality Noted Date [...] of candidiasis. Do not swallow. 1 each 11 04/30/19 24 Active cholecalciferol VITAMIN D (Vitamin D-3) 50 [...] mouth every 12 (twelve) hours. 60 tablet 05/14/19 25 Active morphine CR (MS Contin) 30 MG 12 hr tabletIndicatio ns:Chronic pain syndrome Take 1 tablet (30 mg) by mouth every 12 (twelve) hours. 60 tablet 03/31/19 25 2024 Discontinued(R eorder (will not trigger notification to [...] Time Provider Department Center 05/01/2022 3:00 PM [facility] SILVIO CRUZ NURSE [facility] MED [facility] 05/04/2022 11:30 AM Radha Leon MD [facility] MED [facility] Diabetes mellitus without complication 0 Mild asthma 09/19/2016 Chronic pain syndrome 05/17/2016 Lumbago with sciatica 12/28/2014 Trigeminal neuralgia 12/28/2014 Encounters Date Type Department Care Team Description 05/13/2024 Telephone [facility] MEDICINE [address] [place] [address] Radha Leon MD Med Refill 05/02/2024 Population Health Risk Score Community Care [facility] (C3) Department [address] [phone] Provider, [facility] Generic 04/16/2024 9:00 AM EST Clinical Support [facility] & PEDS [address] [place] [address] Mariangel Ha, diamond assorter pain syndrome 04/16/2024 Telephone [facility] [address] [place] [address] Mariangel Ha RN 04/16/2024 Travel 03/31/2024 Refill [facility] [address] [place] [address] Radha Leon MD Chronic pain syndrome 03/18/2024 9:45 AM EST Procedure Visit [facility] [address] [place] [address] Radha Leon MD Vaginal discharge (Primary Dx); Encounter for gynecological examination with Papanicolaou smear of cervix 03/18/2024 Orders Only [facility] [address] [place] [address] Radha Leon MD 03/18/2024 Travel 02/27/2024 Orders Only [facility] External Provider, [facility] 02/19/2024 Refill [facility] [address] [place] [address] Radha Leon MD Chronic pain syndrome from Last 3 Months Immunizations Name Administration [...] Care Team (Late st Contact Info) Description 06/23/2024 10:00 AM EDT Telemedicine [facility] MED [facility] PEDS [address] [place] [address] Mariangel Ha, RN [address] [place] [address] Health Maintenance Due Date Last Done Comments CT Colonography 1965 Dental Prophylaxis 1965 FIT DNA/Cologuard 1965 FIT 1965 FOBT 1965 HIV Screening 1965 Sigmoidoscopy 1965 Diabetes: Foot Exam 07/10/1975 Hepatitis C Screening 07/10/1983 Hepatitis A Vaccines (1 of 2 - Risk 2-dose series) 1984 Hepatitis B Vaccines (1 of 3 - 19+ 3-dose series) 1984 Pneumococcal Vaccine: 50+ Years (2 of 2 - PCV) 10/19/2018 10/19/2017 Dental Oral Exam 11/11/2020 05/10/2020 Diabetes: Urine Protein Screening 12/08/2021 12/08/2020, 06/16/2020, 12/25/2019 Dental X-Ray: Full Mouth 05/12/2023 05/10/2020 COVID-19 Vaccine ( season) 2023 Dental X-Ray: Bitewings 04/17/2024 04/16/19, 02/21/2023, 05/10/2020 Lipid Panel 04/24/2024 04/25/2023, 07/21, 12/08/2020, Additional history exists Diabetes: Hemoglobin A1C 07/29/2024 024, 04/25/2023, 03/29/2022, Additional history exists Eye Exam 12/28/2024 12/28/2022 Alcohol/Substance Use Screening 01/28/2025 01/29/2024 Depression Screening 01/28/2025 01/29/2024, 01/29/20 SDOH Screening 01/28/2025 01/29/2024 Tobacco Screening 03/18/2025 03/18/2024 Mammogram 07/08/2025 2023, 06/20, 08/25/2020, Additional history exists Colonoscopy 03/14/2026 03/14/2016 Colorectal Cancer Screening 03/14/2026 Pap Smear 03/18/2027 03/18/2024 DTaP/Tdap/Td Vaccines (3 - Td or Tdap) 05/12/2028 05/12/2018, 09/23/2014, 12/03/2001 Cervical Cancer Screening 03/18/2029 HPV/Cotest 03/18/2029 03/18/2024 RSV Patients and Patients Aged 60 years [...] Procedure Name Priority Date/Time Associated Diagnosis Comments POCT LUIS EDUARDO-14 URINE DRUG SCREEN Routine 04/16/2024 9:21 AM EST Chronic pain syndrome PAP SMEAR Routine 03/18/2024 10:20 AM EST Encounter for gynecological examination with Papanicolaou smear of cervix HPV DNA, LOW/HIGH RISK Routine 03/18/2024 10:20 AM EST BACTERIAL VAGINOSIS PANEL Routine 03/18/2024 10:20 AM EST Vaginal discharge US RENAL BI Routine 02/28/2024 9:00 PM EST POCT GLYCATED HEMOGLOBIN, TOTAL Routine 01/29/2024 12:04 [...] RADIOGRAPHIC IMAGE Routine 04/16/2023 2:15 PM EST DIABETES EYE EXAM Routine 12/28/2022 ALBUMIN, RANDOM URINE W/CREATININE Routine 12/08/2020 8:41 AM EDT INTRAORAL - COMPLETE SERIES OF RADIOGRAPHIC IMAGES Routine 05/10/2020 12:00 AM EDT COMPREHENSIVE ORAL EVALUATION - NEW OR ESTABLISHED PATIENT Routine 05/10/2020 12:00 AM EDT HM COLONOSCOPY Routine 03/14/2016 from Last 3 Months or Most Recently Relevant to Health Maintenance Results * POCT LUIS EDUARDO-14 Urine Drug Screen (04/16/2024 9:21 AM EST) Opiate Screen, Urine Positive Urine Urine specimen obtained by clean catch procedure / Unknown 04/16/2024 9:21 AM EST Narrative Mariangel Ha RN - 04/16/2024 9:21 AM EST Lot# [id number] Exp: 10-08-25 Rahda Leon MD POINT OF CARE TEST ENTER/EDIT ORDERABLES Final Result * Bacterial Vaginosis Panel (03/18/2024 10:20 AM EST) Pathologist [facility] TRICHOMONAS VAGINALIS DETECTION BY PCR NOT DETECTED Not Detect [facility] BACTERIAL VAGINOSIS DETECTION BY PCR NEGATIVE Negative [facility] Comment:The BV organism targ ets of the Xpert Xpress MVP test can becommensal in women; Xpert Xpress MVP positive results forbacterial vaginosis should be considered in conjunction withother clinical and patient information to determine thedisease status. Organisms that are not detected by the XpertXpress MVP test have also been reported to be associatedwith BV and aerobic vaginitis.The Xpert Xpress MVP test performance has not been evaluatedin patients under the age of 14. TRUDY GROUP DETECTION BY PCR NOT DETECTED Not Detect [facility] Trudy glab krusei PCR NOT DETECTED Not Detect [facility] Swab Vaginal structure / Unknown 03/18/2024 10:20 AM EST 03/18/2024 1:59 PM EST Radha Leon MD LAB MICROBIOLOGY - GENERAL OR DERABLES Final Result [facility] [address] [place] [phone] * HPV DNA, Low/High Risk (03/18/2024 10:20 AM EST) Pathologist [facility] HPV High Risk Negative Negative [facility] HPV Genotype 16 Negative Negative [facility] HPV Genotype 18 Negative Negative [facility] Comment:HPV testing performe d at [facility] (CLIA#[id number]), [address] [place] [id number].Testing for HPV was performed using the Jose MARIA VICTORIA 6800system. The presence of HPV in the female genital tract isassociated with a number of diseases, including cervicalcarcinoma. The HPV DNA high risk pool tests for HPV 31, 33,35, 39, 45, 51, 52, 56, 58, 59, 66 and 68. The testing forHPV 16 and 18 genotypes has also been performed. A positiveresult indicates detection of nucleic acid sequences fromone or more subtypes, whereas a negative result indicatessuch sequences were not detected. 03/18/2024 10:2 0 AM EST 03/20/2024 7:18 AM EST us Radha Leon MD LAB BLOOD ORDERABLES Final Re sult [facility] [address] [place] [phone] * Pap Smear (03/18/2024 10:20 AM EST) Swab Cervical swab / Unknown 03/18/2024 10:20 AM EST 03/20/2024 6:05 AM EST Wyatt [facility] - 03/28/2024 11:47 AM EST ----- ------- Name: Neeru Garcia ?Age/Sex: 58/F ? : 1965 Unit#: [id number] ?? Attend Dr: ?Re03/18/24 ?Status: PRE REF ? Location: HO.LNP ?Disch: ? ----- ------- SPEC : [id number] ? RECD: 03/20/24 ? STATUS: ??SOUT ? REQ NUM: [id number] ? FESTUS: 03/18/24-0 ? SUBM DR: Radha Leon MD ? ENTERED: ??03/20/24 ?SP TYPE: Pap Smr ?OTHR DR: ? ORDERED: ??Pap Smear ? Interpretation ?? Satisfactory for evaluation. ?? Negative for intraepithelial lesion or malignancy. ?? Obscuring inflammation. ? HPV High Risk: ??Negative ? HPV Genotyping 16: ??Negative ?? HPV Genotyping 18: ??Negative ?Clinical Information LMP:02/19/2021 Previous PAP test: 5 years ago, normal Other surgery: Other history: ? Material Received ?? ThinPrep-Cervical ----- ------- Signed (signature on file) KASSIE Parra (ASCP) 03/28/24 1147 ? ----- ------- ? END OF REPORT ? us Radha Leon MD LAB CYTOLOGY ORDERABLES Final Result [facility] [address] [place] [phone] * US RENAL BI (02/28/2024 9:00 PM EST) Anatomical Region Laterality Modality Abdomen Ultrasound 02/28/2024 9:00 PM EST Narrative 02/28/2024 9:02 PM EST ? [facility] ?[address] ? [place] [address] ? Ultrasound Report ? Signed ? Patient: Nouel Blum,Neeru ?MR#: [id number] ?? [id number] ? : 1965 ?Acct:[id number] ? Age/Sex: 58 / F ?ADM Date: 01/08/25 ? Loc: HO.HMGCX ? Attending Dr: Monika THORNE ? Ordering Physician: Monika Guerin ?? Date of Service: 02/27/24 ?? Procedure(s): US renal BI ?? Accession Number(s): [id number] ? cc: Radha Leon MD; Monika Guerin ? CLINICAL HISTORY: N28.1 - Cyst of kidney, acquired ? US Renal ? Comparison: US/OT/DE/SR - US RENAL BI - 02/20/23 10:03 [...] DD/ 2100 ? TD/TT: 02/28/24 2100 ? Clerical Grader: ? Procedure Note Niki Tucker - 02/28/2024 [facility] [place] [address] Ultrasound Report Signed Patient: Neeru Garcia#: [id number] : 1965Acct:[id number] Age/Sex: 58 / FADM Date: 02/27/24 [facility] Dr: Monika THORNE Ordering Physician: Monika Guerin Date of Service: 02/27/24 Procedure(s): US renal BI Accession Number(s): [id number] cc: Radha Leon MD; Monika GuerinP-BC CLINICAL HISTORY: N28.1 - Cyst of kidney, acquired US Renal Comparison: US/OT/DE/SR - US RENAL BI - 02/20/23 10:03 [...] in OV> 02/28/242100 DD/ 99 TD/TT: 02/28/242099 Clerical Grader: [facility] External Provider IMG US PROCEDURES Edited Result - Final * (ABNORMAL) POCT HGB A1C (01/29/2024 12:04 PM EST) Hemoglobin A1C 6.3(A) 4.0 - 6.0 % QC Media Lot # [id number] Lot# Expiration Date 8 Blood 01/29/2024 12:0 4 PM EST Radha Leon MD POINT OF CARE TEST ENTER/EDIT ORDERABLES Final Result * BI Mammogram Screening Tomosynthesis Bilateral (2023 3:00 PM EDT) Anatomical Region Laterality Modality Breast Bilateral Mammography 2023 3:00 PM EDT Narrative 07/22/2023 7:34 PM EDT ? [facility] ? [address] ?[place] [address] ? Mammography Report ? Signed ? Patient: Nouel Blum,Neeru ?MR#: [id number] ?? [id number] ? : 1965 ?Acct:[id number] ? Age/Sex: 57 / F ?ADM Date: 05/20/24 ? Loc: HO.MAMMO ? Attending Dr: Radha Leon MD ? Ordering Physician: Radha Leon MD ?Results: 2Be ?? nign Findings ? Date of Service: 07/09/23 ?Follow Up: 1 Year From Orig ?? inal Mammogram ? Procedure(s): MM tomosynthesis screening BI ?? Accession Number(s): [id number] ? cc: Radha Leon MD ? EXAMINATION: [...] a well-circumscribed benign mass. This is ?? billing representative of an involuting fibroadenoma. ? MM/MM [...] by Sparkle Sheehan MD in OV> ? 07/22/231929 ? DD/ 1500 ? TD/TT: ? Clerical Grader: ? Procedure Note Garrett, Image - 07/22/2023 [facility] [address] [place], [place] [address] Mammography Report Signed Patient: Neeru GarciaMR#: [id number] : 1965Acct:[id number] Age/Sex: 57 / FADM Date: 07/09/23 Loc: HO.MAMMO Attending Dr: Radha Leon MD Ordering Physician: Radha Leon MDResults: 2Be nign Findings Date of Service: 07/09/23Follow Up: 1 Year From Orig inal Mammogram Procedure(s): MM tomosynthesis screening BI Accession Number(s): [id number] cc: Radha Leon MD EXAMINATION: MM SCREENING [...] within a well-circumscribed benign mass. This is billing representative of an involuting fibroadenoma. MM/MM tomosynthesis [...] in OV> 07/22/23 1930 DD/ 1500 TD/TT: Clerical Grader: us Radha Leon MD IMG BI PROCEDURES Edited Resu lt - Final * (ABNORMAL) Lipid Panel, Standard (04/25/2023 10:31 AM EST) Triglycerides 111 <150 mg/dL [facility] Comment:Desirable Triglyceri de: less than 150 mg/dLBorderline High Triglyceride 150-199 mg/dLHigh Triglyceride: 200-499 mg/dLVery High Triglyceride: greater than or equal to 5OO mg/dL Cholesterol 216(H) <200 mg/dL [facility] Comment:Desirable Cholestero l: less than 200 mg/dLBorderline High Cholesterol: 200-239 mg/dLHigh Cholesterol: greater than 239 mg/dL LDL Cholesterol Calculated 138(H) <100 mg/dL [facility] Comment:Desirable LDL: less than 100 mg/dLNear Optimal/Above Optimal LDL: 110- 129 mg/dLBorderline High LDL: 130-159 mg/dLHigh LDL: 160-189 mg/dLVery High LDL: greater than or equal to 190 mg/dL HDL Cholesterol 56 >40 mg/dL [facility] Comment:Desirable HDL: great er than 40 mg/dL Note: This HDL assay may give artificially low results in patients with liver disease. Blood Venous blood specimen / Unknown 04/25/2023 10:31 AM EST 04/25/2023 2:42 PM EST us Radha Leon MD LAB BLOOD ORDERABLES Final Re sult [facility] [address] [place] [phone] * Hm Diabetes Eye Exam (12/28/2022) Eye Exam Normal Normal Narrative Radha Leon MD - 12/28/2022 No diabetic retinopathy us Radha Leon MD HEALTH MAINTENANCE Final Resu [...] [facility] 12/08/2020 8:41 AM EDT us Radha Leon MD LAB URINE ORDERABLES Final Re sult Performing Organization Address [facility]/ZIP Co de Phone Number [facility] [address] [place] [address], * Colonoscopy (03/14/2016) Colonoscopy Normal Normal Narrative Barb Allen - 03/14/2016 Recommended 10 year follow up us Historical Provider MD HEALTH MAINTENANCE Final Result from Last 3 Months or Most Recently Relevant to Health Maintenance Insurance [facility] C3 D[facility]AL-[facility] MEDICAID STAND ADULT Care Teams System Developer Associate Manager Relationship Specialty Start Date End Date Radha Leon MD [address] [place] [address] PCP - General Family Medicine 02/19/18
--- OUTSIDE RECORDS SUMMARY | 2024-05-19 17:12 | XMS_ITS | Encounter Summary ---
Author Organization [employer] Address [address] [facility] 7 [place] [address] Care Team Providers Care Reserves Clerk Name Role Phone Radha Leon MD Primary Care Provider [phone] Reason for Visit * Reason Onset Date Comments Med Refill 06/15/2022 Encounter Details Date Type Department Care Team ([facility] st Contact Info) Description 06/15/2022 Telephone [facility] MEDICINE [address] [place] [address] Radha Leon MD [address] [place] [address] [phone] Med Refill Social History Tobacco Use Types [...] Info) Description 06/23/2024 10:00 AM EDT Telemedicine [facility] MED & PEDS [address] [place] [address] Mariangel Ha, RN [address] [place] [address] documented as of this encounter Visit Diagnoses Not on filedocumented in this encounter Additional Health Concerns Assessment Noted Time PHQ-9 Depression Total Score: 14 023 12:32 PM EDT documented as of this encounter Care Teams Reserves Clerk Relationship Specialty Start Date End Date Radha Leon MD [address] [place] [address] PCP - General Family Medicine 02/19/18 documented as of this encounter
--- OUTSIDE RECORDS SUMMARY | 2024-05-19 17:12 | XMS_ITS | Encounter Summary ---
Author Organization [employer] Address [address] [facility] 7 [place] [address] Care Team Providers Care Sign Language Interpreter Name Role Phone Radha Leon MD Primary Care Provider [phone] Reason for Visit * Reason Onset Date Comments Med Refill 04/30/2023 Encounter Details Date Type Department Care Team ([facility] st Contact Info) Description 04/30/2023 Telephone [facility] MEDICINE [address] [place] [address] Radha Leon MD [address] [place] [address] [phone] Med Refill Social History Tobacco Use Types [...] Info) Description 06/23/2024 10:00 AM EDT Telemedicine [facility] MED & PEDS [address] [place] [address] Mariangel Ha RN [address] [place] [address] documented as of this encounter Visit Diagnoses Not on filedocumented in this encounter Additional Health Concerns Assessment Noted Time PHQ-9 Depression Total Score: 14 023 12:32 PM EDT documented as of this encounter Care Teams Sign Language Interpreter Relationship Specialty Start Date End Date Radha Leon MD [address] [place] [address] PCP - General Family Medicine 02/19/18 documented as of this encounter
--- OUTSIDE RECORDS SUMMARY | 2024-05-19 17:12 | XMS_ITS | Encounter Summary ---
Author Organization [employer] Address [address] [facility] 7t [place] [address] Care Team Providers Care Online Content Coordinator Name Role Phone Radha Leon MD Primary Care Provider [phone] Reason for Visit * Reason Onset Date Comments Nurse Triage 12/18/2023 Encounter Details Date Type Department Care Team ([facility] st Contact Info) Description 12/18/2023 Telephone [facility] [address] [place] [address] Radha Leon MD [address] [place] [address] [phone] Nurse Triage Social History Tobacco Use Types [...] for Lactose Intolerance? * Telephone Encounter - Albindileep Kenn - 12/18/2023 9:03 AM EDT Symptom: Weight Loss Outcome: Schedule an urgent appointment (within 4 hours) or talk to a nurse or provider soon Reason: Has diabetes The caller accepted this outcome. documented in this encounter Plan of Treatment Upcoming Encounters Date Type Department Care Team ([facility] st Contact Info) Description 06/23/2024 10:00 AM EDT Telemedicine [facility] MED & PEDS [address] [place] [address] Mariangel Ha RN [address] [place] [address] documented as of this encounter Visit Diagnoses Not on filedocumented in this encounter Additional Health Concerns Assessment Noted Time PHQ-9 Depression Total Score: 14 05/04/ 023 12:32 PM EDT documented as of this encounter Care Teams Online Content Coordinator Relationship Specialty Start Date End Date Radha Leon MD [address] [place] [address] PCP - General Family Medicine 02/19/18 documented as of this encounter
--- OUTSIDE RECORDS SUMMARY | 2024-05-19 17:12 | XMS_ITS | Encounter Summary ---
Author Organization [employer] Address 75 [facility] 7 [place] [address] Care Team Providers Care Actuarial Assistant Name Role Phone Radha Leon MD Primary Care Provider [phone] Reason for Visit * Reason Onset Date Comments Med Refill 10/19/2023 Encounter Details Date Type Department Care Team ([facility] st Contact Info) Description 10/19/2023 Telephone [facility] MEDICINE [address] [place] [address] Radha Leon MD [address] [place] [address] [phone] Med Refill Social History Tobacco Use Types [...] 12 hr tablet To be sent to: [id number] - [place], [place] - [address] [place] [address] AT [facility] documented in this encounter Plan of Treatment Upcoming Encounters Date Type Department Care Team (Late st Contact Info) Description 06/23/2024 10:00 AM EDT Telemedicine [facility] MED [facility] PEDS [address] [place] [address] Mariangel Ha, KENDRA [address] [place] [address] documented as of this encounter Visit Diagnoses Not on filedocumented in this encounter Additional Health Concerns Assessment Noted Time PHQ-9 Depression Total Score: 14 023 12:32 PM EDT documented as of this encounter Care Teams Actuarial Assistant Relationship Specialty Start Date End Date Radha Leon MD [address] [place] [address] PCP - General Family Medicine 02/19/18 documented as of this encounter
--- OUTSIDE RECORDS SUMMARY | 2024-05-19 17:12 | XMS_ITS | Encounter Summary ---
Author Organization [employer] Address 75 [facility] 7t [place] [address] Care Team Providers Care Wire Weaver Helper Name Role Phone Radha Leon MD Primary Care Provider [phone] Encounter Details Date Type Department Care Team ([facility] st Contact Info) Description 12/27/2022 Abstract [facility] MEDICINE [address] [place] [address] Radha Leon MD [address] [place], [place] [phone] Social History Tobacco Use Types Packs/Day Years [...] t he electric, gas, oil or water [employer] threatened to shut off services in your [...] Info) Description 06/23/2024 10:00 AM EDT Telemedicine [facility] MED & PEDS [address] [place], [place] [phone] Mariangel Ha RN [address] [place], [place] [phone] documented as of this encounter Procedures Procedure [...] documented as of this encounter Care Teams Wire Weaver Helper Relationship Specialty Start Date End Date Radha Leon MD [address] [place] [address] PCP - General Family Medicine 02/19/18 documented as of this encounter
--- OUTSIDE RECORDS SUMMARY | 2024-05-19 17:12 | XMS_ITS | Encounter Summary ---
Author Organization [employer] Address [address] [facility] 7 [place] [address] Care Team Providers Care Taxation Accountant Name Role Phone Radha Leon MD Primary Care Provider [phone] Reason for Visit * Reason Onset Date Comments Med Refill 11/30/2023 Encounter Details Date Type Department Care Team ([facility] Contact Info) Description 11/30/2023 Telephone [facility] MEDICINE [address] [place] [address] Radha Leon MD [address] [place] [address] [phone] Med Refill Social History Tobacco Use Types [...] 12 hr tablet To be sent to: [id number] - [place], [place] - [address] [place] [address] [facility] documented in this encounter Plan of Treatment Upcoming Encounters Date Type Department Care Team (Late st Contact Info) Description 06/23/2024 10:00 AM EDT Telemedicine [facility] MED [facility]EDS [address] [place] [address] Mariangel Ha, KENDRA [address] [place] [address] documented as of this encounter Visit Diagnoses Not on filedocumented in this encounter Additional Health Concerns Assessment Noted Time PHQ-9 Depression Total Score: 14 023 12:32 PM EDT documented as of this encounter Care Teams Taxation Accountant Relationship Specialty Start Date End Date Radha Leon MD [address] [place] [address] PCP - General Family Medicine 02/19/18 documented as of this encounter
--- OUTSIDE RECORDS SUMMARY | 2024-05-19 17:12 | XMS_ITS | Encounter Summary ---
Author Organization [employer] [facility] Address [address] [place] [address] 7 [place] [address] Care Team Providers Care Clinical Supervisor Name Role Phone Radha Leon MD Primary Care Provider [phone] Reason for Visit * Reason Comments Med Refill Encounter Details Date Type Department Care Team ([facility] Contact Info) Description 07/21/2022 Refill [facility] MED & PEDS [address] [place] [address] Delaney Mosley MD [address] [place] [address] RUQ abdominal pain Social History Tobacco Use [...] Upcoming Encounters Date Type Department Care Team ([facility] Contact Info) Description 06/23/2024 10:00 AM EDT Telemedicine [facility] MED & PEDS [address] [place], [place] [phone] Mariangel Ha RN [address] [place], [place] [phone] documented as of this encounter Visit Diagnoses Diagnosis RUQ abdominal pain Abdominal pain, right upper quadrant documented in this encounter Additional Health Concerns Assessment Noted Time PHQ-9 Depression Total Score: 14 023 12:32 PM EDT documented as of this encounter Care Teams Clinical Supervisor Relationship Specialty Start Date End Date Radha Leon MD [address] [place] [address] PCP - General Family Medicine 02/19/18 documented as of this encounter
== END 2024-05-19 15:55 | disposition home or self-care (01) ==
LOC: HO.HUSH 15:12
PROVIDERS: PCP Pediatrics; Visit Provider Nurse Practitioner Family
DX: N28.1 Cyst of kidney, acquired (principal); Z13.9 Encounter for screening, unspecified
CPT/HCPCS: 99213

== ENCOUNTER → 2024-05-19 15:12 | Outpatient (BNVA) | payer MEDICAID, SELFPAY | PROVIDERS: PCP Pediatrics; Visit Provider Nurse Practitioner Family | DX: N28.1 Cyst of kidney, acquired (principal); N20.0 Calculus of kidney | CPT/HCPCS: 81003; 99212 ==

== ENCOUNTER 2024-07-12 13:43 | Outpatient (REF) | payer MEDICAID, SELFPAY ==
[2024-07-12 13:51] LABS: Appearance Urine Clear; Color Urine Yellow; Glucose Urine UA 250 mg/dL (Negative); Leukocyte Esterase Urine Negative (Negative); Nitrite Urine Negative (Negative); PH 5.5 (5.0-9.0); Specific Gravity - Urine 1.015 (1.005-1.025); Urine Blood Negative (Negative); Urine Ketones Negative (Negative); Urine Protein Negative (Neg-Trace)
[2024-07-12 13:55] LABS: Bacteria Urine None Seen (None Seen); Hyaline Casts Urine 0-2 /LPF (0-2); RBC Urine 0-2 /HPF (0-2); Squamous Epithelial Cell Urine 0-2 /HPF (0-2); WBC Urine 0-5 /HPF (0-5)
[2024-07-12 14:50] LABS: Bacterial Vaginosis PCR NEGATIVE (Negative); Candida Group PCR NOT DETECTED (Not Detect); Candida glab krusei PCR NOT DETECTED (Not Detect); Trichomonas vaginalis PCR NOT DETECTED (Not Detect)
[2024-07-12 15:21] LABS: CT PCR NOT DETECTED (Not Detect.); NG PCR NOT DETECTED (Not Detect.)
== END 2024-07-12 13:44 | disposition home or self-care (01) ==
LOC: HO.HHCLNP 13:43
PROVIDERS: Visit Provider Internal Medicine
DX: N72 Inflammatory disease of cervix uteri (principal); R39.9 Unspecified symptoms and signs involving the genitourinary system
CPT/HCPCS: 81001; 81515; 87491; 87591